=== PATIENT | female | born 1930 | race American Indian/Alaskan Native ===

== ENCOUNTER 2019-08-02 11:36 | Inpatient (IN) | payer MEDICARE ==
[2019-08-02] MEDS ORDERED: SODIUM CHLORIDE 0.9% 1000 ML 1,000 ML IV ONE (12:47)
--- NOTE | 2019-08-02 12:47 | Emergency Department Report ---
HPI - General Chief Complaint: Altered Mental Status Time Seen by Provider: 08/02/19 12:26 - HPI HPI: Room 8 The patient is an 88-year-old female presenting with a chief complaint of diarrhea. Family states the patient has had diarrhea approximately 4 episodes a day for the past 5 days. There's been no history of nausea vomiting. There's been no history of fever or sick contacts. The patient has not been on antibiotics recently. Patient denies pain of any type. Family states Imodium has helped Location: [See above] Duration: [See above] Quality: [See above] Severity: [See above] Timing: [See above] Context: [See above] Modifying factors: [See above] Associated signs and symptoms: [see above] ED Past Medical Hx - Past Medical History Hx Hypertension: Yes Hx Diabetes: Yes - Surgical History Past Surgical History?: No - Family History Family history: no significant - Social History Smoking Status: Never Smoker Substance Use Type: None - Medications Home Medications: Home Medications Medication Instructions Recorded Confirmed Last Taken Type Benazepril HCl [Lotensin] 40 mg PO DAILY 09/12/15 09/12/15 09/11/15 History Carvedilol [Coreg] 6.25 mg PO BID 09/12/15 09/12/15 09/11/15 History Digoxin [Digox] 250 mcg PO DAILY 09/12/15 09/12/15 09/11/15 History Furosemide [Lasix TAB] 20 mg PO QDAY PRN 09/12/15 09/12/15 09/11/15 History Megestrol Acetate [Megace] 40 mg PO DAILY 09/12/15 09/12/15 09/11/15 History Timolol 0.5% [Timoptic] 1 drops OP BID 09/12/15 09/12/15 09/11/15 History ED Review of Systems ROS: Stated complaint: WEAKNESS Other details as noted in HPI Constitutional: denies: fever Eyes: denies: eye pain ENT: denies: throat pain Respiratory: no symptoms reported Cardiovascular: denies: chest pain Endocrine: no symptoms reported Gastrointestinal: diarrhea. denies: abdominal pain, nausea, vomiting Genitourinary: denies: dysuria Musculoskeletal: denies: back pain Neurological: denies: headache Physical Exam - Physical Exam Vital Signs: Vital Signs 08/02/19 08/02/19 08/02/19 11:40 12:16 12:30 Temperature 99.7 F H 98.5 F Pulse Rate 79 101 H 85 Respiratory 18 26 H 18 Rate Blood Pressure 104/39 114/47 Blood Pressure 114/34 104/39 [Left] O2 Sat by Pulse 98 98 Oximetry Physical Exam: GENERAL: The patient is well-developed well-nourished female lying on stretcher not appearing to be in acute distress. [] HEENT: Normocephalic. Atraumatic. Extraocular motions are intact. NECK: Trachea midline CHEST/LUNGS: Clear to auscultation. There is no respiratory distress noted. HEART/CARDIOVASCULAR: Regular. There is no tachycardia. There is no gallop rub or murmur. ABDOMEN: Abdomen is soft, nontender. Patient has normal bowel sounds. There is no abdominal distention. SKIN: There is no rash. There is no edema. There is no diaphoresis. NEURO: The patient is awake, alert, and oriented. The patient is cooperative. The patient has normal speech MUSCULOSKELETAL: There is no evidence of acute injury. RECTAL: Guaiac positive ED Course Vital Signs 08/02/19 08/02/19 08/02/19 11:40 12:16 12:30 Temperature 99.7 F H 98.5 F Pulse Rate 79 101 H 85 Respiratory 18 26 H 18 Rate Blood Pressure 104/39 114/47 Blood Pressure 114/34 104/39 [Left] O2 Sat by Pulse 98 98 Oximetry - Consultations Consultation #1: 08/02/19 13:52 GI paged 08/02/19 14:[address] Poncho SWEET/Peripheral Line Neck R Time Out Performed: Yes Indications: multiple IV sites needed Skin Cleansed in Sterile Fashion: Yes Size: 20 Dressing Placed: Tegaderm Patient Tolerated Procedure: no complications ED Medical Decision Making - Lab Data Result diagrams: 08/02/19 12:45 08/02/19 12:45 Laboratory Tests 08/02/19 08/02/19 08/02/19 11:51 12:45 12:45 WBC 11.0 RBC 1.69 L Hgb 4.8 L* Hct 13.9 L* MCV 82 MCH 29 MCHC 35 H RDW 14.4 Plt Count 213 Sodium 134 L Potassium 3.9 Chloride 98.4 Carbon Dioxide 19 L Anion Gap 21 BUN 48 H Creatinine 2.1 H Estimated GFR 27 BUN/Creatinine Ratio 23 Glucose 144 H POC Glucose 159 H Lactic Acid Calcium 8.2 L Total Bilirubin 0.20 AST 21 ALT 11 Alkaline Phosphatase 67 Total Protein 5.9 L Albumin 3.0 L Albumin/Globulin Ratio 1.0 Lipase Urine Bilirubin 08/02/19 08/02/19 08/02/19 12:45 12:45 13:22 WBC RBC Hgb Hct MCV MCH MCHC RDW Plt Count Sodium Potassium Chloride Carbon Dioxide Anion Gap BUN Creatinine Estimated GFR BUN/Creatinine Ratio Glucose POC Glucose Lactic Acid 3.60 H* Calcium Total Bilirubin AST ALT Alkaline Phosphatase Total Protein Albumin Albumin/Globulin Ratio Lipase 16 Urine Bilirubin Neg - Differential Diagnosis enteritis, partial small bowel obstruction, GI bleed Critical care attestation.: If time is entered above; I have spent that time in minutes in the direct care of this critically ill patient, excluding procedure time. ED Disposition Clinical Impression: Diarrhea, GI bleed, Symptomatic anemia Disposition: OP ADMIT IP TO THIS HOSP Is pt being admited?: Yes Does the pt Need Aspirin: No Condition: Fair Time of Disposition: 14:22 (Hospitalist paged (Dr Mix))
[2019-08-02 13:12] LABS: Mean Corpuscular HGB Conc 35 % (30-34); Mean Corpuscular Volume 82 fl (79-97); Platelet Count 213 K/mm3 (140-440); Red Blood Count 1.69 M/mm3 (3.65-5.03); Red Cell Distribution Width 14.4 % (13.2-15.2)
[2019-08-02 13:21] LABS: Hematocrit 13.9 % (30.3-42.9); Hemoglobin 4.8 gm/dl (10.1-14.3)
[2019-08-02] MEDS ORDERED: SODIUM CHLORIDE 0.9% 500 ML 500 ML IV ONE (13:22)
[2019-08-02] MEDS ORDERED: PANTOPRAZOLE 40 MG INJ IV ONE (13:24)
[2019-08-02 13:27] LABS: Calcium 8.2 mg/dL (8.4-10.2)
[2019-08-02 13:51] LABS: Bilirubin,Urine NEG (Negative); Blood,Urine NEG (Negative); Color,Urine Yellow (Yellow); Protein,Urine <15 mg/dL mg/dL (Negative); Urobilinogen,Urine < 2.0 mg/dL (<2.0)
[2019-08-02 13:58] LABS: Bacteria,Urine 4+ /HPF (Negative); Hyaline Casts,Urine 10 /LPF; Mucus,Urine FEW /HPF
[2019-08-02] MEDS ORDERED: SODIUM CHLORIDE 0.9% 500 ML 500 ML IV NR (15:00)
[2019-08-02] MEDS ORDERED: FUROSEMIDE 20 MG TAB PO PRN (15:00)
--- NOTE | 2019-08-02 15:06 | Gastroenterology Consultation ---
<RATNA LOUISE - Last Filed: 08/02/19 15:16> History of Present Illness - Reason for Consult Consult date: 08/02/19 GI bleed Requesting physician: NURA JUDD - History of Present Illness Patient is a 88 y/o female with PMH of HLD, HTN, DM, and dementia who was brought to ED for c/o diarrhea x 5 days with black stool. Upon admission, she was found to have severe anemia with H/H 4.8/13.9. GI has been consulted for GI bleeding. Upon exam, patient was resting in bed w/o acute distress but noted to be currently hypotensive receiving fluid bolus. Daughter was at bedside how assisted with providing history. No hematemesis or hematochezia. Took pepto- bismol when diarrhea initially began but has most recently been taking immodium at home which has helped with no reported BM today. Denies fever, CP, SOB, wt loss, N/V (ate oatmeal for breakfast this am), abd pain, or constipation. No NSAID use. No hx of previous GI bleeding, PUD, or liver disease. No prior EGD or colonoscopy. Past History Past Medical History: other (as per HPI) Past Surgical History: No surgical history Social history: lives with family. denies: smoking, alcohol abuse Medications and Allergies Allergies Allergy/AdvReac Type Severity Reaction Status Date / Time No Known Allergies Allergy Verified 09/12/15 06:15 Home Medications Medication Instructions Recorded Confirmed Last Taken Type Benazepril HCl [Lotensin] 40 mg PO DAILY 09/12/15 09/12/15 09/11/15 History Carvedilol [Coreg] 6.25 mg PO BID 09/12/15 09/12/15 09/11/15 History Digoxin [Digox] 250 mcg PO DAILY 09/12/15 09/12/15 09/11/15 History Furosemide [Lasix TAB] 20 mg PO QDAY PRN 09/12/15 09/12/15 09/11/15 History Megestrol Acetate [Megace] 40 mg PO DAILY 09/12/15 09/12/15 09/11/15 History Timolol 0.5% [Timoptic] 1 drops OP BID 09/12/15 09/12/15 09/11/15 History Active Meds: Active Medications Albuterol (Proventil) 2.5 mg IH Q3HRT PRN PRN Reason: Shortness Of Breath Digoxin (Lanoxin) 0.25 mg PO DAILY CLAUDIA Furosemide (Lasix) 20 mg PO QDAY PRN PRN Reason: Edema Pantoprazole Sodium 80 mg/ (Sodium Chloride) 100 mls @ 10 mls/hr IV DIRECT CLAUDIA Sodium Chloride (Nacl 0.9% 500 Ml) 500 mls @ 0 mls/hr IV ONCE NR Stop: 08/02/19 21:00 Ceftriaxone Sodium (Rocephin/Ns 1 Gm/50 Ml) 1 gm in 50 mls @ 100 mls/hr IV Q24HR CLAUDIA; Protocol Lisinopril (Zestril) 40 mg PO QDAY CLAUDIA Pantoprazole Sodium (Protonix) 40 mg IV BID CLAUDIA Sodium Chloride (Sodium Chloride Flush Syringe 10 Ml) 10 ml IV BID CLAUDIA Sodium Chloride (Sodium Chloride Flush Syringe 10 Ml) 10 ml IV PRN PRN PRN Reason: LINE FLUSH Timolol Maleate (Timoptic) 1 drops OD BID CLAUDIA medications reviewed/updated as required Review of Systems - Review of Systems All systems: negative Gastrointestinal: diarrhea (black stool) Exam - Constitutional Vital Signs: Temp Pulse Resp BP Pulse Ox 98.5 F 85 18 104/39 98 08/02/19 12:30 08/02/19 12:30 08/02/19 12:30 08/02/19 12:30 08/02/19 12:30 General appearance: no acute distress - EENT Eyes: PERRL, EOM intact ENT: hearing intact - Respiratory Respiratory effort: normal - Cardiovascular Rhythm: regular - Gastrointestinal General gastrointestinal: Present: soft, non-tender, non-distended, normal bowel sounds - Neurologic Neurological: oriented to person - Labs CBC & Chem 7: 08/02/19 12:45 08/02/19 12:45 Lab Results: Laboratory Results - last 24 hr 08/02/19 08/02/19 08/02/19 11:51 12:11 12:45 WBC 11.0 RBC 1.69 L Hgb 4.8 L* Hct 13.9 L* MCV 82 MCH 29 MCHC 35 H RDW 14.4 Plt Count 213 VBG pH Sodium Potassium Chloride Carbon Dioxide Anion Gap BUN Creatinine Estimated GFR BUN/Creatinine Ratio Glucose POC Glucose 159 H 148 H Lactic Acid Calcium Total Bilirubin AST ALT Alkaline Phosphatase Total Protein Albumin Albumin/Globulin Ratio Lipase Urine Color Urine Turbidity Urine pH Ur Specific [place] Urine Protein Urine Glucose (UA) Urine Ketones Urine Blood Urine Nitrite Urine Bilirubin Urine Urobilinogen Ur Leukocyte Esterase Urine WBC (Auto) Urine RBC (Auto) U Epithel Cells (Auto) Urine Bacteria (Auto) Urine WBC Clumps Hyaline Casts Urine Mucus Blood Type Antibody Screen Crossmatch 08/02/19 08/02/19 08/02/19 12:45 12:45 12:45 WBC RBC Hgb Hct MCV MCH MCHC RDW Plt Count VBG pH Sodium 134 L Potassium 3.9 Chloride 98.4 Carbon Dioxide 19 L Anion Gap 21 BUN 48 H Creatinine 2.1 H Estimated GFR 27 BUN/Creatinine Ratio 23 Glucose 144 H POC Glucose Lactic Acid 3.60 H* Calcium 8.2 L Total Bilirubin 0.20 AST 21 ALT 11 Alkaline Phosphatase 67 Total Protein 5.9 L Albumin 3.0 L Albumin/Globulin Ratio 1.0 Lipase 16 Urine Color Urine Turbidity Urine pH Ur Specific [place] Urine Protein Urine Glucose (UA) Urine Ketones Urine Blood Urine Nitrite Urine Bilirubin Urine Urobilinogen Ur Leukocyte Esterase Urine WBC (Auto) Urine RBC (Auto) U Epithel Cells (Auto) Urine Bacteria (Auto) Urine WBC Clumps Hyaline Casts Urine Mucus Blood Type Antibody Screen Crossmatch 08/02/19 08/02/19 08/02/19 13:22 13:36 13:36 WBC RBC Hgb Hct MCV MCH MCHC RDW Plt Count VBG pH 7.397 Sodium Potassium Chloride Carbon Dioxide Anion Gap BUN Creatinine Estimated GFR BUN/Creatinine Ratio Glucose POC Glucose Lactic Acid Calcium Total Bilirubin AST ALT Alkaline Phosphatase Total Protein Albumin Albumin/Globulin Ratio Lipase Urine Color Yellow Urine Turbidity Cloudy Urine pH 5.0 Ur Specific [place] 1.012 Urine Protein <15 mg/dl Urine Glucose (UA) Neg Urine Ketones Neg Urine Blood Neg Urine Nitrite Neg Urine Bilirubin Neg Urine Urobilinogen < 2.0 Ur Leukocyte Esterase Lg Urine WBC (Auto) 46.0 H Urine RBC (Auto) 2.0 U Epithel Cells (Auto) < 1.0 Urine Bacteria (Auto) 4+ Urine WBC Clumps 3+ Hyaline Casts 10 Urine Mucus Few Blood Type O POSITIVE Antibody Screen Negative Crossmatch See Detail Assessment and Plan 1.UGIB/melena 2.acute blood loss anemia -plt WNL -BUN 48 -H/H 4.8/13.9-transfusion PRBCs pending (ordered but not yet given) -continue to monitor H/H and transfuse as needed -hold blood thinning medications -daughter reports diarrhea with black stool x 5 days. No BM today. No hematemesis, hematochezia, abd pain , or N/v. -etiology unclear -clinically, patient is currently hypotensive receiving fluid bolus. -will schedule for EGD tomorrow for further evaluation once HD stable with H/H improved (will be available for emergent EGD if needed) -Keep NPO for now -continue protonix drip -continue supportive care -recommend stat CTA vs bleeding scan for overt bleeding -will follow <ALLA BURRELL - Last Filed: 08/02/19 19:08> Medications and Allergies Active Meds: Active Medications Albuterol (Proventil) 2.5 mg IH Q3HRT PRN PRN Reason: Shortness Of Breath Digoxin (Lanoxin) 0.25 mg PO DAILY CLAUDIA Furosemide (Lasix) 20 mg PO QDAY PRN PRN Reason: Edema Heparin Sodium (Porcine) (Heparin) 5,000 unit SUB-Q Q12HR CLAUDIA Pantoprazole Sodium 80 mg/ (Sodium Chloride) 100 mls @ 10 mls/hr IV DIRECT CLAUDIA Last Admin: 08/02/19 15:20 Dose: 8 mg/hr, 10 mls/hr Documented by: Sodium Chloride (Nacl 0.9% 500 Ml) 500 mls @ 0 mls/hr IV ONCE NR Stop: 08/02/19 21:00 Ceftriaxone Sodium (Rocephin/Ns 1 Gm/50 Ml) 1 gm in 50 mls @ 100 mls/hr IV Q24HR CLAUDIA; Protocol Last Admin: 08/02/19 15:21 Dose: 100 mls/hr Documented by: Lisinopril (Zestril) 40 mg PO QDAY CLAUDIA Sodium Chloride (Sodium Chloride Flush Syringe 10 Ml) 10 ml IV BID CLAUDIA Sodium Chloride (Sodium Chloride Flush Syringe 10 Ml) 10 ml IV PRN PRN PRN Reason: LINE FLUSH Timolol Maleate (Timoptic) 1 drops OD BID CLAUDIA Exam - Constitutional Vital Signs: Temp Pulse Resp BP Pulse Ox 98.5 F 72 15 102/41 100 08/02/19 12:30 08/02/19 15:46 08/02/19 15:46 08/02/19 15:46 08/02/19 15:46 - Labs CBC & Chem 7: 08/02/19 12:45 08/02/19 12:45 Lab Results: Laboratory Results - last 24 hr 08/02/19 08/02/19 08/02/19 11:51 12:11 12:45 WBC 11.0 RBC 1.69 L Hgb 4.8 L* Hct 13.9 L* MCV 82 MCH 29 MCHC 35 H RDW 14.4 Plt Count 213 VBG pH Sodium Potassium Chloride Carbon Dioxide Anion Gap BUN Creatinine Estimated GFR BUN/Creatinine Ratio Glucose POC Glucose 159 H 148 H Lactic Acid Calcium Total Bilirubin AST ALT Alkaline Phosphatase Total Protein Albumin Albumin/Globulin Ratio Lipase Urine Color Urine Turbidity Urine pH Ur Specific [place] Urine Protein Urine Glucose (UA) Urine Ketones Urine Blood Urine Nitrite Urine Bilirubin Urine Urobilinogen Ur Leukocyte Esterase Urine WBC (Auto) Urine RBC (Auto) U Epithel Cells (Auto) Urine Bacteria (Auto) Urine WBC Clumps Hyaline Casts Urine Mucus Blood Type Antibody Screen Crossmatch 08/02/19 08/02/19 08/02/19 12:45 12:45 12:45 WBC RBC Hgb Hct MCV MCH MCHC RDW Plt Count VBG pH Sodium 134 L Potassium 3.9 Chloride 98.4 Carbon Dioxide 19 L Anion Gap 21 BUN 48 H Creatinine 2.1 H Estimated GFR 27 BUN/Creatinine Ratio 23 Glucose 144 H POC Glucose Lactic Acid 3.60 H* Calcium 8.2 L Total Bilirubin 0.20 AST 21 ALT 11 Alkaline Phosphatase 67 Total Protein 5.9 L Albumin 3.0 L Albumin/Globulin Ratio 1.0 Lipase 16 Urine Color Urine Turbidity Urine pH Ur Specific [place] Urine Protein Urine Glucose (UA) Urine Ketones Urine Blood Urine Nitrite Urine Bilirubin Urine Urobilinogen Ur Leukocyte Esterase Urine WBC (Auto) Urine RBC (Auto) U Epithel Cells (Auto) Urine Bacteria (Auto) Urine WBC Clumps Hyaline Casts Urine Mucus Blood Type Antibody Screen Crossmatch 08/02/19 08/02/19 08/02/19 13:22 13:36 13:36 WBC RBC Hgb Hct MCV MCH MCHC RDW Plt Count VBG pH 7.397 Sodium Potassium Chloride Carbon Dioxide Anion Gap BUN Creatinine Estimated GFR BUN/Creatinine Ratio Glucose POC Glucose Lactic Acid Calcium Total Bilirubin AST ALT Alkaline Phosphatase Total Protein Albumin Albumin/Globulin Ratio Lipase Urine Color Yellow Urine Turbidity Cloudy Urine pH 5.0 Ur Specific [place] 1.012 Urine Protein <15 mg/dl Urine Glucose (UA) Neg Urine Ketones Neg Urine Blood Neg Urine Nitrite Neg Urine Bilirubin Neg Urine Urobilinogen < 2.0 Ur Leukocyte Esterase Lg Urine WBC (Auto) 46.0 H Urine RBC (Auto) 2.0 U Epithel Cells (Auto) < 1.0 Urine Bacteria (Auto) 4+ Urine WBC Clumps 3+ Hyaline Casts 10 Urine Mucus Few Blood Type O POSITIVE Antibody Screen Negative Crossmatch See Detail 08/02/19 16:35 WBC RBC Hgb Hct MCV MCH MCHC RDW Plt Count VBG pH Sodium Potassium Chloride Carbon Dioxide Anion Gap BUN Creatinine Estimated GFR BUN/Creatinine Ratio Glucose POC Glucose 127 H Lactic Acid Calcium Total Bilirubin AST ALT Alkaline Phosphatase Total Protein Albumin Albumin/Globulin Ratio Lipase Urine Color Urine Turbidity Urine pH Ur Specific [place] Urine Protein Urine Glucose (UA) Urine Ketones Urine Blood Urine Nitrite Urine Bilirubin Urine Urobilinogen Ur Leukocyte Esterase Urine WBC (Auto) Urine RBC (Auto) U Epithel Cells (Auto) Urine Bacteria (Auto) Urine WBC Clumps Hyaline Casts Urine Mucus Blood Type Antibody Screen Crossmatch Assessment and Plan Patient seen and examined on 08/02/2019. Agree with A/P. 88 yo female with dementia and HTN admitted for GI bleed. Reports diarrhea with black stools but no BM for past 2 days. Hgb down to 4.8 and pending transfusion. - possible upper GI bleed. - continue with ppi IV - monitor H/H. transfuse with Hgb goal >7. - will plan for EGD tomorrow once resusitated and receives blood transfusion.
[2019-08-02] MEDS: PANTOPRAZOLE 80 MG in SODIUM CHLORIDE 0.9% 100 ML IV SCH (15:20)
[2019-08-02] MEDS: cefTRIAXone/NS 1 GM/50 ML 1 GM/50 ML BAG IV SCH (15:21)
[2019-08-02] MEDS ORDERED: ALBUTEROL 2.5 MG/3 ML NEBU IH PRN (17:00)
--- NOTE | 2019-08-02 17:10 | History and Physical Report ---
History of Present Illness Date of admission: 08/02/19 14:23 Chief complaint: she is bleeding History of present illness: 88 YO Female with HTN, HLD, Dementia presents to ED for evaluation. Pt is confused and unable to provide detailed history. Pt history provided by daughter who is at bedside during exam and interview. As per daughter, the patient has experienced 4-5 dark tarry stools daily over the past 1 week with persistent symptoms over the same time frame. Pt transported to [facility] via private vehicle for evaluation. Pt seen and evaluated in ED and found to have GI Bleed complicated by symptomatic anemia with HGB of 4.8, as well as Acute Kidney Injury, UTI and Encephalopathy. Pt admitted to [facility] and initiated on PRBC transfusion. GI consulted in ED. Nephrology consulted in ED. No reports of fever, chills, CP, Palpitations, NVD, Productive cough, ingestion of food/water from new or different sources. Prior admission on 09/12/15 reviewed. All listed medication reconciled at time of admission. Advanced car planning conducted in ED. Pt daughter acknowledges understanding and agreement with care plan. Past History Past Medical History: diabetes, hypertension, hyperlipidemia, other (Dementia) Past Surgical History: No surgical history Social history: lives with family. denies: smoking, alcohol abuse Family history: diabetes, hypertension Medications and Allergies Allergies Allergy/AdvReac Type Severity Reaction Status Date / Time No Known Allergies Allergy Verified 09/12/15 06:15 Home Medications Medication Instructions Recorded Confirmed Last Taken Type Benazepril HCl [Lotensin] 40 mg PO DAILY 09/12/15 09/12/15 09/11/15 History Carvedilol [Coreg] 6.25 mg PO BID 09/12/15 09/12/15 09/11/15 History Digoxin [Digox] 250 mcg PO DAILY 09/12/15 09/12/15 09/11/15 History Furosemide [Lasix TAB] 20 mg PO QDAY PRN 09/12/15 09/12/15 09/11/15 History Megestrol Acetate [Megace] 40 mg PO DAILY 09/12/15 09/12/15 09/11/15 History Timolol 0.5% [Timoptic] 1 drops OP BID 09/12/15 09/12/15 09/11/15 History Active Meds: Active Medications Albuterol (Proventil) 2.5 mg IH Q3HRT PRN PRN Reason: Shortness Of Breath Digoxin (Lanoxin) 0.25 mg PO DAILY CLAUDIA Furosemide (Lasix) 20 mg PO QDAY PRN PRN Reason: Edema Pantoprazole Sodium 80 mg/ (Sodium Chloride) 100 mls @ 10 mls/hr IV DIRECT CLAUDIA Last Admin: 08/02/19 15:20 Dose: 8 mg/hr, 10 mls/hr Documented by: Sodium Chloride (Nacl 0.9% 500 Ml) 500 mls @ 0 mls/hr IV ONCE NR Stop: 08/02/19 21:00 Ceftriaxone Sodium (Rocephin/Ns 1 Gm/50 Ml) 1 gm in 50 mls @ 100 mls/hr IV Q24HR CLAUDIA; Protocol Last Admin: 08/02/19 15:21 Dose: 100 mls/hr Documented by: Lisinopril (Zestril) 40 mg PO QDAY CLAUDIA Pantoprazole Sodium (Protonix) 40 mg IV BID CLAUDIA Sodium Chloride (Sodium Chloride Flush Syringe 10 Ml) 10 ml IV BID CLAUDIA Sodium Chloride (Sodium Chloride Flush Syringe 10 Ml) 10 ml IV PRN PRN PRN Reason: LINE FLUSH Timolol Maleate (Timoptic) 1 drops OD BID CLAUDIA Review of Systems ROS unobtainable: due to mental status Exam - Constitutional Vitals: Temp Pulse Resp BP Pulse Ox 98.5 F 72 15 102/41 100 08/02/19 12:30 08/02/19 15:46 08/02/19 15:46 08/02/19 15:46 08/02/19 15:46 General appearance: Present: mild distress - EENT Eyes: Present: PERRL (conjunctival pallor) ENT: hearing intact, clear oral mucosa - Neck Neck: Present: supple, normal ROM - Respiratory Respiratory effort: normal Respiratory: bilateral: CTA - Cardiovascular Heart Sounds: Present: S1 & S2. Absent: rub, click - Extremities Extremities: pulses symmetrical, No edema Peripheral Pulses: within normal limits - Abdominal General gastrointestinal: Present: soft, non-tender, non-distended, normal bowel sounds Female genitourinary: Present: normal - Integumentary Integumentary: Present: clear, warm, dry - Musculoskeletal Musculoskeletal: generalized weakness - Psychiatric Psychiatric: no appropriate mood/affect, no intact judgment & insight, no memory intact - Neurologic Neurologic: CNII-XII intact, moves all extremities, no gait normal Results - Labs CBC & Chem 7: 08/02/19 12:45 08/02/19 12:45 Labs: Abnormal lab results 08/02/19 08/02/19 08/02/19 Range/Units 11:51 12:11 12:45 RBC 1.69 L (3.65-5.03) M/mm3 Hgb 4.8 L* (10.1-14.3) gm/dl Hct 13.9 L* (30.3-42.9) % MCHC 35 H (30-34) % Sodium (137-145) mmol/L Carbon Dioxide (22-30) mmol/L BUN (7-17) mg/dL Creatinine (0.7-1.2) mg/dL Glucose (65-100) mg/dL POC Glucose 159 H 148 H (70-105) Lactic Acid (0.7-2.0) mmol/L Calcium (8.4-10.2) mg/dL Total Protein (6.3-8.2) g/dL Albumin (3.9-5) g/dL Urine WBC (Auto) (0.0-6.0) /HPF Crossmatch 08/02/19 08/02/19 08/02/19 Range/Units 12:45 12:45 13:22 RBC (3.65-5.03) M/mm3 Hgb (10.1-14.3) gm/dl Hct (30.3-42.9) % MCHC (30-34) % Sodium 134 L (137-145) mmol/L Carbon Dioxide 19 L (22-30) mmol/L BUN 48 H (7-17) mg/dL Creatinine 2.1 H (0.7-1.2) mg/dL Glucose 144 H (65-100) mg/dL POC Glucose (70-105) Lactic Acid 3.60 H* (0.7-2.0) mmol/L Calcium 8.2 L (8.4-10.2) mg/dL Total Protein 5.9 L (6.3-8.2) g/dL Albumin 3.0 L (3.9-5) g/dL Urine WBC (Auto) 46.0 H (0.0-6.0) /HPF Crossmatch 08/02/19 08/02/19 Range/Units 13:36 16:35 RBC (3.65-5.03) M/mm3 Hgb (10.1-14.3) gm/dl Hct (30.3-42.9) % MCHC (30-34) % Sodium (137-145) mmol/L Carbon Dioxide (22-30) mmol/L BUN (7-17) mg/dL Creatinine (0.7-1.2) mg/dL Glucose (65-100) mg/dL POC Glucose 127 H (70-105) Lactic Acid (0.7-2.0) mmol/L Calcium (8.4-10.2) mg/dL Total Protein (6.3-8.2) g/dL Albumin (3.9-5) g/dL Urine WBC (Auto) (0.0-6.0) /HPF Crossmatch See Detail Assessment and Plan - Patient Problems (1) GI bleed Current Visit: Yes Status: Acute Qualifiers: GI bleed type/associated pathology: unspecified gastrointestinal hemorrhage type Qualified Code(s): K92.2 - Gastrointestinal hemorrhage, unspecified Plan to address problem: Admit to IMCU, IV PPI therapy, GI consulted in ED, CBC, supportive care, PRBC Transfusion. (2) AZALIA (acute kidney injury) Current Visit: Yes Status: Acute Plan to address problem: IVF resuscitation therapy, renal ultrasound, monitor serum creatnine, urine electrolytes, Nephrology consulted. (3) UTI (urinary tract infection) Current Visit: Yes Status: Acute Qualifiers: Encounter type: initial encounter Plan to address problem: IV antibiotic therapy, urinalysis, CBC, CMP, supportive care. (4) Encephalopathy Current Visit: Yes Status: Acute Plan to address problem: supportive care, Treat UTI, neuro checks, aspiration precautions, (5) HTN (hypertension) Current Visit: Yes Status: Acute Qualifiers: Hypertension type: essential hypertension Qualified Code(s): I10 - Essential (primary) hypertension Plan to address problem: Monitor BP q shift, supportive care (6) HLD (hyperlipidemia) Current Visit: Yes Status: Acute Qualifiers: Hyperlipidemia type: mixed hyperlipidemia Qualified Code(s): E78.2 - Mixed hyperlipidemia Plan to address problem: low fat, low cholesterol diet, (7) DVT prophylaxis Current Visit: Yes Status: Acute Plan to address problem: SCD to BLE while in bed, Prophylactic heparin
[2019-08-02] MEDS ORDERED: PANTOPRAZOLE 40 MG INJ IV SCH (22:00)
[2019-08-02] MEDS: HEPARIN 5,000 UNIT/1 ML VIAL SUB-Q SCH (23:04)
[2019-08-03] MEDS: PANTOPRAZOLE 80 MG in SODIUM CHLORIDE 0.9% 100 ML IV SCH ×2 (00:24→11:34)
[2019-08-03] MEDS ORDERED: WATER FOR IRRIG STERILE 250 ML BOTTLE IR ONE (08:01)
[2019-08-03] MEDS ORDERED: WATER FOR IRRIG STERILE 1,000 ML BOTTLE ONE (08:01)
[2019-08-03] MEDS ORDERED: PROPOFOL 200 MG/20 ML VIAL IV ONE ×2 (08:04→08:05)
--- NOTE | 2019-08-03 08:05 | Anesthesia Consultation ---
<FELICITA GARCÍA - Last Filed: 08/03/19 08:05> Anesthesia Consult and Med Hx Date of service: 08/03/19 - Airway Anesthetic Teeth Evaluation: Dentures (upper and lower) ROM Head & Neck: Adequate Mental/Hyoid Distance: Adequate Mallampati Class: Class II Intubation Access Assessment: Probably Good - Pre-Operative Health Status ASA Pre-Surgery Classification: ASA3, Emergency Proposed Anesthetic Plan: MAC - Cardiovascular System Hx Hypertension: Yes Hx Coronary Artery Disease: No (high cholesterol) - Central Nervous System Hx Psychiatric Problems: Yes (dementia) - Endocrine Hx Non-Insulin Dependent Diabetes: Yes - Hematic Hx Anemia: Yes <RAY LANE - Last Filed: 08/03/19 20:00> Anesthesia Consult and Med Hx - Additional Comments Anesthesia Medical History Comments: Daughter reports hx CHF. Recently taken off digoxin. She is unsure of recent EF. Unknown functional status, stable 1 pillow orthopnea. No cardiac [facility] E[facility].
--- NOTE | 2019-08-03 08:06 | Anesthesia Day of Surgery ---
Anesthesia Day of Surgery - Day of Surgery Patient Examined: Yes Patient H&P Reviewed: Yes Patient is NPO: Yes
[2019-08-03 08:07] LABS: Albumin 3.2 g/dL (3.9-5); Calcium 8.3 mg/dL (8.4-10.2)
[2019-08-03] MEDS ORDERED: ePHEDrine SULFATE 50 MG/1 ML INJ ONE (08:07)
[2019-08-03] MEDS ORDERED: SODIUM CHLORIDE 0.9% 1000 ML 1,000 ML ONE (08:17)
--- NOTE | 2019-08-03 08:48 | Progress Note ---
Assessment and Plan Assessment and plan: -- Acute GI bleeding: Current Visit: Yes Status: Acute GI evaluation noted and appreciated, S/P EGD : FINDINGS: 1. Mild erythematous mucosa in the antrum. No signs of bleeding. 2. Normal duodenum exam to the second portion. 3. Regular z-line at 40 cm from the incisors. 4. Normal esophagus. RECOMMENDATIONS: 1. Resume clear liquid diet. 2. Will plan for colonoscopy tomorrow. 3. Golytely prep and NPO MN. 4. Updated the family and agreeable for colonoscopy. 5. Monitor H/H every 8 hrs. Continue IV PPI therapy Possible Colonoscopy tomorrow --Acute blood loss anemia: Hemoglobin 4.8 at the time of admission S/P 3 units PRBC transfusion Hb 8.1 Monitor H&H transfuse additional as needed -- AZALIA (acute kidney injury) Current Visit: Yes Status: Acute . IVF resuscitation therapy, renal ultrasound, monitor serum creatnine, Nephrology following --UTI (urinary tract infection) Current Visit: Yes Status: Acute IV antibiotic therapy, follow cultures -- Encephalopathy Current Visit: Yes Status: Acute supportive care, Treat UTI, neuro checks, aspiration precautions, --HTN (hypertension) Current Visit: Yes Status: Acute Monitor BP q shift, supportive care -- HLD (hyperlipidemia) Current Visit: Yes Status: Acute low fat, low cholesterol diet, --Mild Malnutrition/hypoalbuminemia: Nutrition suppliments,supportive care --DVT prophylaxis Current Visit: Yes Status: Acute SCD to BLE while in bed, Prophylactic heparin. f/u colonoscopy,if neg and stable patient may be discharged Critical care time 32 minutes History Interval history: Patient seen and examined medical records reviewed Admitted with acute GI bleeding Evaluated by GI, had EGD, findings reviewed Patient is sleeping easily awakens Vital signs reviewed Patient not in acute distress Hospitalist Physical - Constitutional Vitals: Temp Pulse Resp BP Pulse Ox 98.0 F 75 17 166/73 90 08/03/19 08:24 08/03/19 08:24 08/03/19 08:24 08/03/19 08:24 08/03/19 08:24 General appearance: Present: no acute distress, well-nourished, obese - EENT Eyes: Present: PERRL, EOM intact - Neck Neck: Present: supple, normal ROM - Respiratory Respiratory effort: normal Respiratory: bilateral: diminished, negative: rales, rhonchi, wheezing - Cardiovascular Rhythm: regular Heart Sounds: Present: S1 & S2 - Extremities Extremities: no ischemia, No edema - Abdominal General gastrointestinal: soft, non-tender, non-distended, normal bowel sounds - Integumentary Integumentary: Present: clear, warm - Psychiatric Psychiatric: other (sleeping easily awakens) - Neurologic Neurologic: moves all extremities Results - Labs CBC & Chem 7: 08/03/19 14:31 08/03/19 Unknown Labs: Laboratory Last Values WBC 11.0 K/mm3 (4.5-11.0) 08/02/19 12:45 RBC 1.69 M/mm3 (3.65-5.03) L 08/02/19 12:45 Hgb 4.8 gm/dl (10.1-14.3) L* 08/02/19 12:45 Hct 13.9 % (30.3-42.9) L* 08/02/19 12:45 MCV 82 fl (79-97) 08/02/19 12:45 MCH 29 pg (28-32) 08/02/19 12:45 MCHC 35 % (30-34) H 08/02/19 12:45 RDW 14.4 % (13.2-15.2) 08/02/19 12:45 Plt Count 213 K/mm3 (140-440) 08/02/19 12:45 VBG pH 7.397 (7.320-7.420) 08/02/19 13:36 Sodium 144 mmol/L (137-145) D 08/03/19 Unknown Potassium 4.3 mmol/L (3.6-5.0) 08/03/19 Unknown Chloride 108.1 mmol/L (98-107) H 08/03/19 Unknown Carbon Dioxide 19 mmol/L (22-30) L 08/03/19 Unknown Anion Gap 21 mmol/L 08/03/19 Unknown BUN 33 mg/dL (7-17) H 08/03/19 Unknown Creatinine 1.4 mg/dL (0.7-1.2) H 08/03/19 Unknown Estimated GFR 43 ml/min 08/03/19 Unknown BUN/Creatinine Ratio 24 % 08/03/19 Unknown Glucose 91 mg/dL (65-100) 08/03/19 Unknown POC Glucose 96 (70-105) 08/03/19 05:58 Lactic Acid 3.60 mmol/L (0.7-2.0) H* 08/02/19 12:45 Calcium 8.3 mg/dL (8.4-10.2) L 08/03/19 Unknown Total Bilirubin 0.60 mg/dL (0.1-1.2) 08/03/19 Unknown AST 34 units/L (5-40) 08/03/19 Unknown ALT 14 units/L (7-56) 08/03/19 Unknown Alkaline Phosphatase 75 units/L (35-129) 08/03/19 Unknown Total Protein 5.9 g/dL (6.3-8.2) L 08/03/19 Unknown Albumin 3.2 g/dL (3.9-5) L 08/03/19 Unknown Albumin/Globulin Ratio 1.2 % 08/03/19 Unknown Lipase 16 units/L (13-60) 08/02/19 12:45 Urine Color Yellow (Yellow) 08/02/19 13:22 Urine Turbidity Cloudy (Clear) 08/02/19 13:22 Urine pH 5.0 (5.0-7.0) 08/02/19 13:22 Ur Specific [place] 1.012 (1.003-1.030) 08/02/19 13:22 Urine Protein <15 mg/dl mg/dL (Negative) 08/02/19 13:22 Urine Glucose (UA) Neg mg/dL (Negative) 08/02/19 13:22 Urine Ketones Neg mg/dL (Negative) 08/02/19 13:22 Urine Blood Neg (Negative) 08/02/19 13:22 Urine Nitrite Neg (Negative) 08/02/19 13:22 Urine Bilirubin Neg (Negative) 08/02/19 13:22 Urine Urobilinogen < 2.0 mg/dL (<2.0) 08/02/19 13:22 Ur Leukocyte Esterase Lg (Negative) 08/02/19 13:22 Urine WBC (Auto) 46.0 /HPF (0.0-6.0) H 08/02/19 13:22 Urine RBC (Auto) 2.0 /HPF (0.0-6.0) 08/02/19 13:22 U Epithel Cells (Auto) < 1.0 /HPF (0-13.0) 08/02/19 13:22 Urine Bacteria (Auto) 4+ /HPF (Negative) 08/02/19 13:22 Urine WBC Clumps 3+ /HPF 08/02/19 13:22 Hyaline Casts 10 /LPF 08/02/19 13:22 Urine Mucus Few /HPF 08/02/19 13:22 Digoxin 0.2 ng/mL (0.9-2.0) L 08/02/19 13:36 Blood Type O POSITIVE 08/02/19 13:36 Antibody Screen Negative 08/02/19 13:36 Crossmatch See Detail 08/02/19 13:36 Active Medications - Current Medications Current Medications: Generic Name Dose Route Start Last Admin Trade Name Freq PRN Reason Stop Dose Admin Albuterol 2.5 mg 08/02/19 17:00 Proventil IH Q3HRT PRN Shortness Of Breath Digoxin 0.25 mg 08/03/19 17:00 Lanoxin PO DAILY@1700 CLAUDIA Furosemide 20 mg 08/02/19 15:00 Lasix PO QDAY PRN Edema Heparin Sodium (Porcine) 5,000 unit 08/02/19 22:00 08/02/19 23:04 Heparin SUB-Q 5,000 unit Q12HR CLAUDIA Administration Pantoprazole Sodium 80 mg/ 100 mls @ 10 mls/hr 08/02/19 15:00 08/03/19 00:24 Sodium Chloride IV 8 mg/hr DIRECT CLAUDIA 10 mls/hr Administration 8 MG/HR Ceftriaxone Sodium 1 gm in 50 mls @ 100 mls/hr 08/02/19 15:00 08/02/19 15:21 Rocephin/Ns 1 Gm/50 Ml IV 100 mls/hr Q24HR CLAUDIA Administration Protocol Sodium Chloride 1,000 mls @ 50 mls/hr 08/03/19 09:00 Nacl 0.9% 1000 Ml IV DIRECT CLAUDIA Lisinopril 40 mg 08/03/19 10:00 Zestril PO QDAY CLAUDIA Sodium Chloride 10 ml 08/02/19 22:00 08/02/19 23:06 Sodium Chloride Flush Syringe 10 Ml IV 10 ml BID CLAUDIA Administration Sodium Chloride 10 ml 08/02/19 15:00 Sodium Chloride Flush Syringe 10 Ml IV PRN PRN LINE FLUSH Timolol Maleate 1 drops 08/02/19 22:00 Timoptic OD BID CLAUDIA
[2019-08-03] MEDS ORDERED: SODIUM CHLORIDE 0.9% 1000 ML 1,000 ML IV SCH (09:00)
--- NOTE | 2019-08-03 09:22 | Operative Report ---
Operative Report Operative Report: DOS: 08/03/2019 Endoscopist: Dick Isaac MD EGD REPORT PREOPERATIVE DIAGNOSIS and POSTOPERATIVE DIAGNOSIS: GI bleed ESTIMATED BLOOD LOSS: minimal DESCRIPTION OF PROCEDURE: A high-resolution EGD scope was passed through the oropharynx, esophagus, stomach. The scope was carefully withdrawn. Retroflexion was performed in the stomach. At the end of the procedure, the scope was cleaned using normal technique. Vital signs monitored continuously throughout. SEDATION: Provided by Anesthesiology Services. COMPLICATIONS: None. FINDINGS: 1. Mild erythematous mucosa in the antrum. No signs of bleeding. 2. Normal duodenum exam to the second portion. 3. Regular z-line at 40 cm from the incisors. 4. Normal esophagus. RECOMMENDATIONS: 1. Resume clear liquid diet. 2. Will plan for colonoscopy tomorrow. 3. Golytely prep and NPO MN. 4. Updated the family and agreeable for colonoscopy. Discussed risks and benefits. 5. Monitor H/H every 8 hrs.
[2019-08-03] MEDS ORDERED: BENAZEPRIL HCL 40 MG PO SCH (10:00)
[2019-08-03] MEDS: TIMOLOL 0.5% OPHTH SOLN 5 ML OD SCH ×2 (10:44→10:48)
[2019-08-03] MEDS: HEPARIN 5,000 UNIT/1 ML VIAL SUB-Q SCH (10:46)
[2019-08-03] MEDS: cefTRIAXone/NS 1 GM/50 ML 1 GM/50 ML BAG IV SCH (10:47)
[2019-08-03] MEDS: LISINOPRIL 40 MG TAB PO SCH (10:48)
[2019-08-03 10:53] LABS: Basophils # (Auto) 0.1 K/mm3 (0.0-0.1); Basophils % (Auto) 0.7 % (0.0-1.8); Eosinophils # (Auto) 0.3 K/mm3 (0.0-0.4); Eosinophils % (Auto) 2.9 % (0.0-4.3); Hematocrit 23.2 % (30.3-42.9); Hemoglobin 8.1 gm/dl (10.1-14.3); Lymphocytes # (Auto) 1.1 K/mm3 (1.2-5.4); Lymphocytes % (Auto) 12.5 % (13.4-35.0); Mean Corpuscular HGB Conc 35 % (30-34); Mean Corpuscular Volume 83 fl (79-97); Monocytes # (Auto) 0.5 K/mm3 (0.0-0.8); Monocytes % (Auto) 5.6 % (0.0-7.3); Platelet Count 196 K/mm3 (140-440); Red Blood Count 2.78 M/mm3 (3.65-5.03); Red Cell Distribution Width 14.5 % (13.2-15.2)
[2019-08-03 11:04] LABS: INR 1.15 (0.87-1.13)
--- NOTE | 2019-08-03 11:44 | Progress Note ---
Subjective Date of service: 08/03/19 Objective - Vital Signs Vital signs: Vital Signs - 12hr 08/02/19 08/03/19 08/03/19 23:51 00:00 00:06 Temperature 98.2 F Pulse Rate 68 68 Pulse Rate [ From Monitor] Respiratory 15 16 18 Rate Blood Pressure 143/57 143/57 O2 Sat by Pulse 100 98 99 Oximetry 08/03/19 08/03/19 08/03/19 00:07 00:30 00:42 Temperature 98.2 F 97.9 F Pulse Rate 64 Pulse Rate [ From Monitor] Respiratory 16 Rate Blood Pressure 142/55 O2 Sat by Pulse 100 Oximetry 08/03/19 08/03/19 08/03/19 01:00 01:12 01:17 Temperature 98.2 F 98.2 F Pulse Rate 72 74 Pulse Rate [ From Monitor] Respiratory 23 19 Rate Blood Pressure 140/60 155/61 O2 Sat by Pulse 100 100 Oximetry 08/03/19 08/03/19 08/03/19 01:30 02:00 02:03 Temperature 98.3 F Pulse Rate 69 70 68 Pulse Rate [ From Monitor] Respiratory 20 19 18 Rate Blood Pressure 154/65 160/65 156/61 O2 Sat by Pulse 100 100 100 Oximetry 08/03/19 08/03/19 08/03/19 02:30 02:48 03:00 Temperature 98.3 F Pulse Rate 67 70 Pulse Rate [ From Monitor] Respiratory 18 17 Rate Blood Pressure 156/61 169/61 O2 Sat by Pulse 100 100 Oximetry 08/03/19 08/03/19 08/03/19 03:30 03:48 04:00 Temperature 98.3 F 98.1 F Pulse Rate 74 70 Pulse Rate [ 71 From Monitor] Respiratory 13 17 Rate Blood Pressure 161/80 160/66 O2 Sat by Pulse 100 100 Oximetry 08/03/19 08/03/19 08/03/19 04:30 04:48 05:00 Temperature 98.3 F Pulse Rate 74 66 Pulse Rate [ From Monitor] Respiratory 23 22 Rate Blood Pressure 155/65 155/65 O2 Sat by Pulse 100 99 Oximetry 08/03/19 08/03/19 08/03/19 05:05 08:24 08:56 Temperature 98.3 F 98.0 F Pulse Rate 75 77 Pulse Rate [ From Monitor] Respiratory 17 26 H Rate Blood Pressure 166/73 135/57 O2 Sat by Pulse 90 100 Oximetry 08/03/19 10:48 Temperature Pulse Rate 82 Pulse Rate [ From Monitor] Respiratory Rate Blood Pressure 111/75 O2 Sat by Pulse Oximetry - Lab 08/03/19 10:00 08/03/19 Unknown Most recent lab results Calcium 8.3 mg/dL (8.4-10.2) L 08/03/19 Unknown Medications & Allergies - Medications Allergies/Adverse Reactions: Allergies No Known Allergies Allergy (Verified 09/12/15 06:15) Home Medications: Home Medications Medication Instructions Recorded Confirmed Last Taken Type Benazepril HCl [Lotensin] 40 mg PO DAILY 09/12/15 09/12/15 09/11/15 History Carvedilol [Coreg] 6.25 mg PO BID 09/12/15 09/12/15 09/11/15 History Digoxin [Digox] 250 mcg PO DAILY 09/12/15 09/12/15 09/11/15 History Furosemide [Lasix TAB] 20 mg PO QDAY PRN 09/12/15 09/12/15 09/11/15 History Megestrol Acetate [Megace] 40 mg PO DAILY 09/12/15 09/12/15 09/11/15 History Timolol 0.5% [Timoptic] 1 drops OP BID 09/12/15 09/12/15 09/11/15 History Active Medications: Generic Name Dose Route Start Last Admin Trade Name Freq PRN Reason Stop Dose Admin Albuterol 2.5 mg 08/02/19 17:00 Proventil IH Q3HRT PRN Shortness Of Breath Digoxin 0.25 mg 08/03/19 17:00 Lanoxin PO DAILY@1700 CLAUDIA Furosemide 20 mg 08/02/19 15:00 Lasix PO QDAY PRN Edema Heparin Sodium (Porcine) 5,000 unit 08/02/19 22:00 08/03/19 10:46 Heparin SUB-Q 5,000 unit Q12HR CLAUDIA Administration Pantoprazole Sodium 80 mg/ 100 mls @ 10 mls/hr 08/02/19 15:00 08/03/19 11:34 Sodium Chloride IV 8 mg/hr DIRECT CLAUDIA 10 mls/hr Administration 8 MG/HR Ceftriaxone Sodium 1 gm in 50 mls @ 100 mls/hr 08/02/19 15:00 08/03/19 10:47 Rocephin/Ns 1 Gm/50 Ml IV 100 mls/hr Q24HR CLAUDIA Administration Protocol Sodium Chloride 1,000 mls @ 50 mls/hr 08/03/19 09:00 Nacl 0.9% 1000 Ml IV DIRECT CLAUDIA Lisinopril 40 mg 08/03/19 10:00 08/03/19 10:48 Zestril PO 40 mg QDAY CLAUDIA Administration Polyethylene Glycol/Electrolytes 4,000 ml 08/03/19 16:00 Golytely PO 08/03/19 16:01 ONCE ONE Sodium Chloride 10 ml 08/02/19 22:00 08/03/19 10:47 Sodium Chloride Flush Syringe 10 Ml IV 10 ml BID CLAUDIA Administration Sodium Chloride 10 ml 08/02/19 15:00 Sodium Chloride Flush Syringe 10 Ml IV PRN PRN LINE FLUSH Timolol Maleate 1 drops 08/02/19 22:00 08/03/19 10:48 Timoptic OD 1 drops BID CLAUDIA Administration
--- NOTE | 2019-08-03 11:47 | Consultation ---
History of Present Illness - Reason for Consult Consult date: 08/03/19 acute renal failure - History of Present Illness The patient is a 88 YO female with history significant for Type 2 DM, HLD, HTN, and Dementia who was brought to [facility] ED with c/o diarrhea x 5 days and associated black stool. Patient si a very poor historian and the information was obtained from her daughter at the bedside. No h/o fever, vomiting, abd pain, CP, SOB, constipation, dysuria, hematuria, rash or NSAID. On admission, her BP was low, she was found to have H/H of 4.8/13.9, Creat 2.1 and Lacate 3.6. No prior kidney problem. Nephrology was consulted for further evaluation. Past History Past Medical History: diabetes, hypertension, hyperlipidemia, other (Dementia) Past Surgical History: No surgical history Social history: lives with family. denies: smoking, alcohol abuse Family history: diabetes, hypertension Medications and Allergies Allergies Allergy/AdvReac Type Severity Reaction Status Date / Time No Known Allergies Allergy Verified 09/12/15 06:15 Home Medications Medication Instructions Recorded Confirmed Last Taken Type Benazepril HCl [Lotensin] 40 mg PO DAILY 09/12/15 09/12/15 09/11/15 History Carvedilol [Coreg] 6.25 mg PO BID 09/12/15 09/12/15 09/11/15 History Digoxin [Digox] 250 mcg PO DAILY 09/12/15 09/12/15 09/11/15 History Furosemide [Lasix TAB] 20 mg PO QDAY PRN 09/12/15 09/12/15 09/11/15 History Megestrol Acetate [Megace] 40 mg PO DAILY 09/12/15 09/12/15 09/11/15 History Timolol 0.5% [Timoptic] 1 drops OP BID 09/12/15 09/12/15 09/11/15 History Active Meds: Active Medications Albuterol (Proventil) 2.5 mg IH Q3HRT PRN PRN Reason: Shortness Of Breath Digoxin (Lanoxin) 0.25 mg PO DAILY@1700 CLAUDIA Furosemide (Lasix) 20 mg PO QDAY PRN PRN Reason: Edema Heparin Sodium (Porcine) (Heparin) 5,000 unit SUB-Q Q12HR CLAUDIA Last Admin: 08/03/19 10:46 Dose: 5,000 unit Documented by: Pantoprazole Sodium 80 mg/ (Sodium Chloride) 100 mls @ 10 mls/hr IV DIRECT CLAUDIA Last Admin: 08/03/19 11:34 Dose: 8 mg/hr, 10 mls/hr Documented by: Ceftriaxone Sodium (Rocephin/Ns 1 Gm/50 Ml) 1 gm in 50 mls @ 100 mls/hr IV Q24HR [facility]; Protocol Last Admin: 08/03/19 10:47 Dose: 100 mls/hr Documented by: Sodium Chloride (Nacl 0.9% 1000 Ml) 1,000 mls @ 50 mls/hr IV DIRECT CLAUDIA Lisinopril (Zestril) 40 mg PO QDAY [facility] Last Admin: 08/03/19 10:48 Dose: 40 mg Documented by: Polyethylene Glycol/Electrolytes (Golytely) 4,000 ml PO ONCE ONE Stop: 08/03/19 16:01 Sodium Chloride (Sodium Chloride Flush Syringe 10 Ml) 10 ml IV BID [facility] Last Admin: 08/03/19 10:47 Dose: 10 ml Documented by: Sodium Chloride (Sodium Chloride Flush Syringe 10 Ml) 10 ml IV PRN PRN PRN Reason: LINE FLUSH Timolol Maleate (Timoptic) 1 drops OD BID [facility] Last Admin: 08/03/19 10:48 Dose: 1 drops Documented by: Review of Systems ROS unobtainable: due to mental status Exam - Vital Signs Vital signs: Vital Signs Temp Pulse Resp BP Pulse Ox 99.7 F H 79 18 114/34 98 08/02/19 11:40 08/02/19 11:40 08/02/19 11:40 08/02/19 11:40 08/02/19 11:40 - General Appearance General appearance: well-developed, well-nourished, appears stated age, other (no distress) EENT: ATNC, PERRL, mucous membranes moist, hearing intact, vision intact Neck: Present: neck supple, trachea midline Respiratory: Clear to Ascultation Heart: regular, S1S2, no murmurs Gastrointestinal: Present: normoactive bowel sounds. Absent: tenderness, distended Integumentary: no rash, warm and dry Neurologic: no focal deficit, no asterixis, disoriented Musculoskeletal: Present: other (no edema) Psychiatric: cooperative Results - Lab Results 08/04/19 05:51 08/04/19 05:51 Most recent lab results Calcium 8.3 mg/dL (8.4-10.2) L 08/03/19 Unknown - Image Kidney/bladder ultrasound: report reviewed Assessment and Plan 1. Acute kidney injury: Vasomotor AZALIA in the setting of volume depletion. Renal US was negative for obstructive uropathy. Monitor renal function. Avoid nephrotoxic agents. Meds dosage based on GFR. 2. FEN: Monitor lytes. 3. GI bleed: Followed by GI. 4. Acute Anemia 2/2 GI bleed: PRBC. 5. UTI. 6. Dementia. 7. DM.
[2019-08-03] MEDS ORDERED: DEXTROSE 50% IN WATER (25GM) 50 ML SYRINGE IV ONE ×2 (13:14→15:43)
[2019-08-03] MEDS ORDERED: D5W/0.45% NACL 1,000 ML IV SCH (14:00)
[2019-08-03 15:02] LABS: Hematocrit 27.1 % (30.3-42.9); Hemoglobin 9.1 gm/dl (10.1-14.3)
[2019-08-03 15:13] LABS: Calcium 8.5 mg/dL (8.4-10.2)
[2019-08-03] MEDS ORDERED: POLYETHYLENE GLYCOL/ELECT SOLN 4000 ML PO ONE (16:00)
[2019-08-03] MEDS: DIGOXIN 0.25 MG TAB PO SCH (17:20)
[2019-08-03 23:01] LABS: Hematocrit 25.8 % (30.3-42.9); Hemoglobin 8.8 gm/dl (10.1-14.3)
--- NOTE | 2019-08-03 23:08 | Post Anesthesia Evaluation ---
- Post Anesthesia Evaluation Patient Participated: Yes Airway Patent: Yes Stable Respiratory Function: Yes Nausea/Vomiting: No Temp > 96.8F: Yes Pain Manageable: Yes Adequeate Hydration: Yes Anesthesia Complications: No Block Receding Appropriately: Not Applicable Patient on Ventilator: No
[2019-08-04] MEDS: HEPARIN 5,000 UNIT/1 ML VIAL SUB-Q SCH ×3 (00:08→21:22)
[2019-08-04] MEDS: TIMOLOL 0.5% OPHTH SOLN 5 ML OD SCH ×3 (00:11→21:20)
[2019-08-04] MEDS: DEXTROSE 50% IN WATER (25GM) 50 ML SYRINGE IV PRN ×2 (00:16→06:13)
[2019-08-04] MEDS: PANTOPRAZOLE 80 MG in SODIUM CHLORIDE 0.9% 100 ML IV SCH ×2 (01:28→15:55)
[2019-08-04 06:06] LABS: Basophils % (Auto) 0.4 % (0.0-1.8); Eosinophils # (Auto) 0.4 K/mm3 (0.0-0.4); Eosinophils % (Auto) 3.4 % (0.0-4.3); Hematocrit 25.5 % (30.3-42.9); Hemoglobin 8.7 gm/dl (10.1-14.3); Lymphocytes % (Auto) 9.3 % (13.4-35.0); Mean Corpuscular HGB Conc 34 % (30-34); Mean Corpuscular Volume 84 fl (79-97); Monocytes # (Auto) 0.8 K/mm3 (0.0-0.8); Monocytes % (Auto) 7.3 % (0.0-7.3); Platelet Count 261 K/mm3 (140-440); Red Blood Count 3.03 M/mm3 (3.65-5.03); Red Cell Distribution Width 14.8 % (13.2-15.2)
[2019-08-04 06:18] LABS: Calcium 8.2 mg/dL (8.4-10.2)
[2019-08-04] MEDS ORDERED: hydrALAZINE 20 MG/1 ML INJ IV ONE (07:41)
[2019-08-04] MEDS: DEXTROSE 5% IN WATER 1,000 ML IV SCH ×2 (08:57→20:34)
[2019-08-04] MEDS: cefTRIAXone/NS 1 GM/50 ML 1 GM/50 ML BAG IV SCH (09:04)
--- NOTE | 2019-08-04 09:05 | Ultrasound Report ---
ULTRASOUND RENAL INDICATION: Harpal. COMPARISON: No relevant prior imaging study available. FINDINGS: RIGHT KIDNEY: Size: 12.2 cm. Echogenicity: Echogenic. Cortical thickness: 1.3 cm. Hydronephrosis: None. Cyst or mass: Several simple cysts, largest of which measures 8.4 x 5.8 x 7.2 cm.. Stones: None. LEFT KIDNEY: Size: 9.0 cm. Echogenicity: Echogenic. Cortical thickness: 1.1 cm. Hydronephrosis: None. Cyst or mass: None. Stones: None. Urinary Bladder: No significant abnormality. Free Fluid: None. Additional Findings: None. IMPRESSION 1. Echogenic kidneys characteristic for medical renal disease. No hydronephrosis. 2. Several simple right renal cysts.. Signer Name: Malvin Ramos MD Signed: 08/04/2019 9:00 AM Workstation Name: [id number]
[2019-08-04] MEDS: POTASSIUM CHLORIDE 10 MEQ 10 MEQ/100 ML BAG IV SCH ×4 (09:13→17:49)
[2019-08-04] MEDS ORDERED: hydrALAZINE 20 MG/1 ML INJ IV PRN (10:00)
[2019-08-04] MEDS ORDERED: WATER FOR IRRIG STERILE 250 ML BOTTLE IR ONE (10:50)
[2019-08-04] MEDS ORDERED: WATER FOR IRRIG STERILE 1,000 ML BOTTLE ONE (10:50)
[2019-08-04] MEDS ORDERED: LIDOCAINE MPF (2%) 20 MG/1 ML VIAL 5 ML ONE (11:00)
[2019-08-04] MEDS ORDERED: PHENYLEPHRINE/NS 1,000 MCG/10 ML SYRINGE (OR USE) IV ONE (11:00)
[2019-08-04] MEDS ORDERED: SODIUM CHLORIDE 0.9% 1000 ML 1,000 ML ONE (11:03)
[2019-08-04] MEDS ORDERED: PROPOFOL 200 MG/20 ML VIAL IV ONE ×2 (11:03→11:04)
[2019-08-04] MEDS ORDERED: MIDAZOLAM 2 MG/2 ML INJ ONE (11:04)
[2019-08-04] MEDS ORDERED: ETOMIDATE 20 MG/10 ML INJ IV ONE (11:04)
--- NOTE | 2019-08-04 11:10 | Anesthesia Day of Surgery ---
Anesthesia Day of Surgery - Day of Surgery Patient Examined: Yes Patient H&P Reviewed: Yes Patient is NPO: Yes
[2019-08-04] MEDS ORDERED: SODIUM CHLORIDE 0.9% 1000 ML 1,000 ML IV SCH (12:00)
[2019-08-04] MEDS: LISINOPRIL 40 MG TAB PO SCH (13:00)
--- NOTE | 2019-08-04 13:40 | Progress Note ---
Assessment and Plan 1. Acute kidney injury: Vasomotor AZALIA in the setting of volume depletion. Renal US was negative for obstructive uropathy. Continue IV fluids. Renal function is improving. Monitor renal function. Avoid nephrotoxic agents. Meds dosage based on GFR. 2. FEN: Hypernatremia, hypotonic IV fluids. Replete K. Monitor lytes. 3. GI bleed: Followed by GI. s/p EGD. 4. Acute Anemia 2/2 GI bleed: S/p PRBC. 5. UTI. 6. Dementia. 7. DM. D/w her daughter and answered all questions. Examination: General appearance: well-developed, well-nourished, appears stated age, no distress HEENT: ATNC, TANYA, mucous membranes moist, vision intact Neck: supple, trachea midline Respiratory: Clear to Ascultation Heart: regular, S1S2, no murmur Gastrointestinal: normoactive bowel sounds, not tender, not distended Integumentary: no rash, warm and dry Neurologic: no focal deficit, no asterixis, confused Musculoskeletal: no edema Psychiatric: cooperative Subjective Date of service: 08/04/19 Interval history: Patient was seen and examined at the bedside. Objective - Vital Signs Vital signs: Vital Signs - 12hr 08/04/19 08/04/19 08/04/19 02:01 03:01 03:44 Temperature 98.5 F Pulse Rate 56 L 59 L Respiratory 19 22 Rate Blood Pressure 142/46 164/57 O2 Sat by Pulse 100 100 Oximetry 08/04/19 08/04/19 08/04/19 04:00 05:01 06:01 Temperature Pulse Rate 63 60 59 L Respiratory 20 17 24 Rate Blood Pressure 164/57 174/70 170/55 O2 Sat by Pulse 100 100 100 Oximetry 08/04/19 08/04/19 08/04/19 07:01 08:00 08:01 Temperature 98.7 F Pulse Rate 58 L 64 59 L Respiratory 21 24 Rate Blood Pressure 170/111 170/111 158/85 O2 Sat by Pulse 100 99 Oximetry 08/04/19 08/04/19 08/04/19 09:01 10:00 10:01 Temperature Pulse Rate 72 75 64 Respiratory 20 19 Rate Blood Pressure 116/27 116/27 O2 Sat by Pulse 100 100 100 Oximetry 08/04/19 08/04/19 08/04/19 11:01 11:05 12:01 Temperature 98.7 F Pulse Rate 70 64 71 Respiratory 23 22 30 H Rate Blood Pressure 150/60 140/56 116/35 O2 Sat by Pulse 100 100 100 Oximetry 08/04/19 12:18 Temperature 98.7 F Pulse Rate 71 Respiratory 30 H Rate Blood Pressure 116/35 O2 Sat by Pulse 100 Oximetry - Lab 08/04/19 05:51 08/04/19 05:51 Most recent lab results Calcium 8.2 mg/dL (8.4-10.2) L 08/04/19 05:51 Medications & Allergies - Medications Allergies/Adverse Reactions: Allergies No Known Allergies Allergy (Verified 09/12/15 06:15) Home Medications: Home Medications Medication Instructions Recorded Confirmed Last Taken Type Benazepril HCl [Lotensin] 40 mg PO DAILY 09/12/15 09/12/15 09/11/15 History Carvedilol [Coreg] 6.25 mg PO BID 09/12/15 09/12/15 09/11/15 History Digoxin [Digox] 250 mcg PO DAILY 09/12/15 09/12/15 09/11/15 History Furosemide [Lasix TAB] 20 mg PO QDAY PRN 09/12/15 09/12/15 09/11/15 History Megestrol Acetate [Megace] 40 mg PO DAILY 09/12/15 09/12/15 09/11/15 History Timolol 0.5% [Timoptic] 1 drops OP BID 09/12/15 09/12/15 09/11/15 History Active Medications: Generic Name Dose Route Start Last Admin Trade Name Dreq PRN Reason Stop Dose Admin Albuterol 2.5 mg 08/02/19 17:00 Proventil IH Q3HRT PRN Shortness Of Breath Dextrose 25 ml 08/03/19 15:43 08/04/19 06:13 D50w (25gm) Syringe IV 25 ml PRN PRN Administration Hypoglycemia Digoxin 0.25 mg 08/03/19 17:00 08/03/19 17:20 Lanoxin PO Not Given DAILY@1700 [facility] Heparin Sodium (Porcine) 5,000 unit 08/02/19 22:00 08/04/19 12:59 Heparin SUB-Q Not Given Q12HR [facility] Hydralazine HCl 10 mg 08/04/19 10:00 Apresoline IV Q4HR PRN Hypertension Pantoprazole Sodium 80 mg/ 100 mls @ 10 mls/hr 08/02/19 15:00 08/04/19 01:28 Sodium Chloride IV 8 mg/hr DIRECT CLAUDIA 10 mls/hr Administration 8 MG/HR Ceftriaxone Sodium 1 gm in 50 mls @ 100 mls/hr 08/02/19 15:00 08/04/19 09:04 Rocephin/Ns 1 Gm/50 Ml IV 100 mls/hr Q24HR CLAUDIA Administration Protocol Dextrose/Sodium Chloride 1,000 mls @ 75 mls/hr 08/03/19 14:00 D5/0.45ns IV DIRECT CLAUDIA Dextrose 1,000 mls @ 100 mls/hr 08/04/19 08:00 08/04/19 08:57 D5w IV 100 mls/hr DIRECT CLAUDIA Administration Sodium Chloride 1,000 mls @ 50 mls/hr 08/04/19 12:00 Nacl 0.9% 1000 Ml IV DIRECT CLAUDIA Lisinopril 40 mg 08/03/19 10:00 08/04/19 13:00 Zestril PO Not Given QDAY CLAUDIA Sodium Chloride 10 ml 08/02/19 22:00 08/04/19 00:11 Sodium Chloride Flush Syringe 10 Ml IV 10 ml BID CLAUDIA Administration Sodium Chloride 10 ml 08/02/19 15:00 Sodium Chloride Flush Syringe 10 Ml IV PRN PRN LINE FLUSH Timolol Maleate 1 drops 08/02/19 22:00 08/04/19 09:02 Timoptic OD 1 drops BID CLAUDIA Administration
--- NOTE | 2019-08-04 14:01 | Progress Note ---
Assessment and Plan Assessment and plan: -- Acute GI bleeding: Current Visit: Yes Status: Acute s/p Colonoscopy;08/04/19 Findings reviewed COLON: multiple medium/large diverticuli sigmoid/ascending colon - no signs bleeding noted - 8 mm polyp ascending, 15-18 mm polyp recto-sigmoid (hot snare polypectomy both) - larger 2-2 1/2cm polyps caecum on underside IC valve, broad based, concern for possible malignancy, not removed (noted no david ink available for marking), cold bx's - internal hemorrhoids - negative other S/P EGD :08/03/19 FINDINGS: 1. Mild erythematous mucosa in the antrum. No signs of bleeding. 2. Normal duodenum exam to the second portion. 3. Regular z-line at 40 cm from the incisors. 4. Normal esophagus. RECOMMENDATIONS: 1. Resume clear liquid diet. 2. Will plan for colonoscopy tomorrow. 3. Golytely prep and NPO MN. 4. Updated the family and agreeable for colonoscopy. 5. Monitor H/H every 8 hrs. Continue IV PPI therapy Possible Colonoscopy tomorrow --Acute blood loss anemia: Hemoglobin 4.8 at the time of admission S/P 3 units PRBC transfusion Hb 8.1 Monitor H&H transfuse additional as needed ---- AZALIA (acute kidney injury) Current Visit: Yes Status: Acute . IVF resuscitation therapy, renal ultrasound, monitor serum creatnine, Nephrology following --UTI (urinary tract infection) Current Visit: Yes Status: Acute IV antibiotic therapy, follow cultures -- Encephalopathy Current Visit: Yes Status: Acute supportive care, Treat UTI, neuro checks, aspiration precautions, --HTN (hypertension) Current Visit: Yes Status: Acute Monitor BP q shift, supportive care -- HLD (hyperlipidemia) Current Visit: Yes Status: Acute low fat, low cholesterol diet, --Mild Malnutrition/hypoalbuminemia: Nutrition suppliments,supportive care --DVT prophylaxis Current Visit: Yes Status: Acute SCD to BLE while in bed, Prophylactic heparin. GI cleared for transfer out of [facility] Critical care time 32 minutes History Interval history: Sincerely and examined this morning medical records reviewed Patient underwent colonoscopy Patient is sedated and resting Vital signs noted Hospitalist Physical - Constitutional Vitals: Temp Pulse Resp BP Pulse Ox 98.7 F 71 30 H 116/35 100 08/04/19 12:18 08/04/19 12:18 08/04/19 12:18 08/04/19 12:18 08/04/19 12:18 General appearance: Present: no acute distress, well-nourished, other (resting) - EENT Eyes: Present: PERRL, EOM intact - Neck Neck: Present: supple, normal ROM - Respiratory Respiratory effort: normal Respiratory: bilateral: diminished, negative: rales, rhonchi, wheezing - Cardiovascular Rhythm: regular Heart Sounds: Present: S1 & S2 - Extremities Extremities: no ischemia, No edema - Abdominal General gastrointestinal: soft, non-tender, non-distended, normal bowel sounds - Integumentary Integumentary: Present: clear, warm - Psychiatric Psychiatric: other (sleeping) - Neurologic Neurologic: other (sleeping) Results - Labs CBC & Chem 7: 08/04/19 05:51 08/04/19 05:51 Labs: Laboratory Last Values WBC 10.8 K/mm3 (4.5-11.0) 08/04/19 05:51 RBC 3.03 M/mm3 (3.65-5.03) L 08/04/19 05:51 Hgb 8.7 gm/dl (10.1-14.3) L 08/04/19 05:51 Hct 25.5 % (30.3-42.9) L 08/04/19 05:51 MCV 84 fl (79-97) 08/04/19 05:51 MCH 29 pg (28-32) 08/04/19 05:51 MCHC 34 % (30-34) 08/04/19 05:51 RDW 14.8 % (13.2-15.2) 08/04/19 05:51 Plt Count 261 K/mm3 (140-440) 08/04/19 05:51 Lymph % (Auto) 9.3 % (13.4-35.0) L 08/04/19 05:51 [place] % (Auto) 7.3 % (0.0-7.3) 08/04/19 05:51 Eos % (Auto) 3.4 % (0.0-4.3) 08/04/19 05:51 Baso % (Auto) 0.4 % (0.0-1.8) 08/04/19 05:51 Lymph # 1.0 K/mm3 (1.2-5.4) L 08/04/19 05:51 [place] # 0.8 K/mm3 (0.0-0.8) 08/04/19 05:51 Eos # 0.4 K/mm3 (0.0-0.4) 08/04/19 05:51 Baso # 0.0 K/mm3 (0.0-0.1) 08/04/19 05:51 Seg Neutrophils % 79.6 % (40.0-70.0) H 08/04/19 05:51 Seg Neutrophils # 8.6 K/mm3 (1.8-7.7) H 08/04/19 05:51 PT 14.4 Sec. (12.2-14.9) 08/03/19 10:00 INR 1.15 (0.87-1.13) H 08/03/19 10:00 VBG pH 7.397 (7.320-7.420) 08/02/19 13:36 Sodium 149 mmol/L (137-145) H 08/04/19 05:51 Potassium 3.3 mmol/L (3.6-5.0) L 08/04/19 05:51 Chloride 111.0 mmol/L (98-107) H 08/04/19 05:51 Carbon Dioxide 23 mmol/L (22-30) 08/04/19 05:51 Anion Gap 18 mmol/L 08/04/19 05:51 BUN 16 mg/dL (7-17) 08/04/19 05:51 Creatinine 1.1 mg/dL (0.7-1.2) 08/04/19 05:51 Estimated GFR 57 ml/min 08/04/19 05:51 BUN/Creatinine Ratio 15 % 08/04/19 05:51 Glucose 105 mg/dL (65-100) H 08/04/19 05:51 POC Glucose 113 (70-105) H 08/04/19 12:48 Lactic Acid 1.40 mmol/L (0.7-2.0) 08/03/19 14:31 Calcium 8.2 mg/dL (8.4-10.2) L 08/04/19 05:51 Total Bilirubin 0.60 mg/dL (0.1-1.2) 08/03/19 Unknown AST 34 units/L (5-40) 08/03/19 Unknown ALT 14 units/L (7-56) 08/03/19 Unknown Alkaline Phosphatase 75 units/L (35-129) 08/03/19 Unknown Total Protein 5.9 g/dL (6.3-8.2) L 08/03/19 Unknown Albumin 3.2 g/dL (3.9-5) L 08/03/19 Unknown Albumin/Globulin Ratio 1.2 % 08/03/19 Unknown Lipase 16 units/L (13-60) 08/02/19 12:45 Urine Color Yellow (Yellow) 08/02/19 13:22 Urine Turbidity Cloudy (Clear) 08/02/19 13:22 Urine pH 5.0 (5.0-7.0) 08/02/19 13:22 Ur Specific [place] 1.012 (1.003-1.030) 08/02/19 13:22 Urine Protein <15 mg/dl mg/dL (Negative) 08/02/19 13:22 Urine Glucose (UA) Neg mg/dL (Negative) 08/02/19 13:22 Urine Ketones Neg mg/dL (Negative) 08/02/19 13:22 Urine Blood Neg (Negative) 08/02/19 13:22 Urine Nitrite Neg (Negative) 08/02/19 13:22 Urine Bilirubin Neg (Negative) 08/02/19 13:22 Urine Urobilinogen < 2.0 mg/dL (<2.0) 08/02/19 13:22 Ur Leukocyte Esterase Lg (Negative) 08/02/19 13:22 Urine WBC (Auto) 46.0 /HPF (0.0-6.0) H 08/02/19 13:22 Urine RBC (Auto) 2.0 /HPF (0.0-6.0) 08/02/19 13:22 U Epithel Cells (Auto) < 1.0 /HPF (0-13.0) 08/02/19 13:22 Urine Bacteria (Auto) 4+ /HPF (Negative) 08/02/19 13:22 Urine WBC Clumps 3+ /HPF 08/02/19 13:22 Hyaline Casts 10 /LPF 08/02/19 13:22 Urine Mucus Few /HPF 08/02/19 13:22 Digoxin 0.2 ng/mL (0.9-2.0) L 08/02/19 13:36 Blood Type O POSITIVE 08/02/19 13:36 Antibody Screen Negative 08/02/19 13:36 Crossmatch See Detail 08/02/19 13:36 Active Medications - Current Medications Current Medications: Generic Name Dose Route Start Last Admin Trade Name Freq PRN Reason Stop Dose Admin Albuterol 2.5 mg 08/02/19 17:00 Proventil IH Q3HRT PRN Shortness Of Breath Dextrose 25 ml 08/03/19 15:43 08/04/19 06:13 D50w (25gm) Syringe IV 25 ml PRN PRN Administration Hypoglycemia Digoxin 0.25 mg 08/03/19 17:00 08/03/19 17:20 Lanoxin PO Not Given DAILY@1700 CLAUDIA Heparin Sodium (Porcine) 5,000 unit 08/02/19 22:00 08/04/19 12:59 Heparin SUB-Q Not Given Q12HR CLAUDIA Hydralazine HCl 10 mg 08/04/19 10:00 Apresoline IV Q4HR PRN Hypertension Pantoprazole Sodium 80 mg/ 100 mls @ 10 mls/hr 08/02/19 15:00 08/04/19 01:28 Sodium Chloride IV 8 mg/hr DIRECT CLAUDIA 10 mls/hr Administration 8 MG/HR Ceftriaxone Sodium 1 gm in 50 mls @ 100 mls/hr 08/02/19 15:00 08/04/19 09:04 Rocephin/Ns 1 Gm/50 Ml IV 100 mls/hr Q24HR CLAUDIA Administration Protocol Dextrose/Sodium Chloride 1,000 mls @ 75 mls/hr 08/03/19 14:00 D5/0.45ns IV DIRECT CLAUDIA Dextrose 1,000 mls @ 100 mls/hr 08/04/19 08:00 08/04/19 08:57 D5w IV 100 mls/hr DIRECT CLAUDIA Administration Sodium Chloride 1,000 mls @ 50 mls/hr 08/04/19 12:00 Nacl 0.9% 1000 Ml IV DIRECT CLAUDIA Lisinopril 40 mg 08/03/19 10:00 08/04/19 13:00 Zestril PO Not Given QDAY CLAUDIA Sodium Chloride 10 ml 08/02/19 22:00 08/04/19 00:11 Sodium Chloride Flush Syringe 10 Ml IV 10 ml BID CLAUDIA Administration Sodium Chloride 10 ml 08/02/19 15:00 Sodium Chloride Flush Syringe 10 Ml IV PRN PRN LINE FLUSH Timolol Maleate 1 drops 08/02/19 22:00 08/04/19 09:02 Timoptic OD 1 drops BID CLAUDIA Administration Nutrition/Malnutrition Assess - Dietary Evaluation Nutrition/Malnutrition Findings: Nutrition Notes Start: 08/03/19 09:40 Freq: Status: Active Protocol: Document 08/03/19 09:40 KS (Rec: 08/03/19 10:23 KS [id number]) Co-Sign 08/03/19 09:40 LM Nutrition Notes Need for Assessment generated from: payroll lead Initial or Follow up Assessment Current Diagnosis Acute Kidney Injury,Diabetes, Hypertension,Hyperlipidemia Other Pertinent Diagnosis Dementia, GI bleed, Anemia, UTI, encephalopathy Current Diet NPO Labs/Tests BUN 33 CR 1.4 Ca 8.3 Pertinent Medications Reviewed Height 5 ft 4 in Weight 60.3 kg Usual Body Weight 60 kg [place] Body Weight (kg) 54.54 BMI 22.8 Intake Prior to Admission Excellent Weight Status Appropriate Subjective/Other Information RN screen for skin risk. Kyle score 18. Daughter at bedside. Per daughter, pt had good appetite and was eating meals 2-3x daily with a snack JOB TRAINER. Reports no wt change and a UBW of 131lbs. Reports no chewing or swallowing difficulty. Pt reports feeling hungry at time of visit. Follow for diet advancement. Burn Absent Trauma Absent Minimum of two criteria No #1 Nutrition Diagnosis Inadequate oral intake Etiology GI bleed As Evidenced by Signs and Symptoms Pt is NPO Is patient on ventilator? No Is Patient Ambulatory and/or Out of Bed Yes REE-([facility]-ambulatory/OOB) [ 1336.400 [id number]] Kcal/Kg value to use for calculation 27 Approximate Energy Requirements Using 1628 kcal/Kg Calculation Used for Recommendations Kcal/kg Additional Notes PRO: 48-72g/day (0.8-1.2g/kg/ day) Fluid: 1mL/kcal Nutrition Intervention Change Diet Order: Advance diet when medically feasible Goal #1 Advance diet when medically feasible Anticipated Discharge Needs: Unable to determine at this time Follow-Up By: 08/06/19 Additional Comments Follow for diet advancement
--- NOTE | 2019-08-04 14:13 | Post Operative Note ---
Pre-op diagnosis: GI bleed Post-op diagnosis: same Findings: COLON: multiple medium/large diverticuli sigmoid/ascending colon - no signs bleeding noted - 8 mm polyp ascending, 15-18 mm polyp recto-sigmoid (hot snare polypectomy both) - larger 2-2 1/2cm polyps caecum on underside IC valve, broad based, concern for possible malignancy, not removed (noted no david ink available for marking), cold bx's - internal hemorrhoids - negative other Procedure: colonoscopy Anesthesia: MAC Surgeon: DELORES PERSON Estimated blood loss: none Pathology: list Specimen disposition: to lab Condition: stable Disposition: floor
[2019-08-04] MEDS ORDERED: POTASSIUM CHLORIDE ER 20 MEQ TAB PO ONE (14:14)
--- NOTE | 2019-08-04 14:18 | Gastroenterology Progress Note ---
Assessment and Plan GI: s/p colon, see procedure note for finding - follow h/h, transfuse as needed - follow up bx's results - surgery consult for remained colon lesion - start po - if h/h stable ok to transfer to floor - will follow Subjective Date of service: 08/04/19 Interval history: - no further bleeding overnight Objective - Constitutional Vitals: Temp Pulse Resp BP Pulse Ox 98.7 F 71 30 H 116/35 100 08/04/19 12:18 08/04/19 12:18 08/04/19 12:18 08/04/19 12:18 08/04/19 12:18 General appearance: no acute distress - EENT Eyes: PERRL - Respiratory Respiratory: bilateral: CTA - Cardiovascular Rhythm: regular Heart Sounds: Present: S1 & S2 - Gastrointestinal General gastrointestinal: Present: soft, non-tender, non-distended - Labs CBC & Chem 7: 08/04/19 05:51 08/04/19 05:51 Labs: Laboratory Results - last 24 hr 08/03/19 08/03/19 08/03/19 14:31 14:31 14:31 WBC RBC Hgb 9.1 L Hct 27.1 L MCV MCH MCHC RDW Plt Count Lymph % (Auto) [place] % (Auto) Eos % (Auto) Baso % (Auto) Lymph # [place] # Eos # Baso # Seg Neutrophils % Seg Neutrophils # Sodium 147 H Potassium 3.6 Chloride 111.0 H Carbon Dioxide 23 Anion Gap 17 BUN 26 H Creatinine 1.3 H Estimated GFR 47 BUN/Creatinine Ratio 20 Glucose 111 H POC Glucose Lactic Acid 1.40 Calcium 8.5 08/03/19 08/03/19 08/03/19 14:35 17:05 22:48 WBC RBC Hgb 8.8 L Hct 25.8 L MCV MCH MCHC RDW Plt Count Lymph % (Auto) [place] % (Auto) Eos % (Auto) Baso % (Auto) Lymph # [place] # Eos # Baso # Seg Neutrophils % Seg Neutrophils # Sodium Potassium Chloride Carbon Dioxide Anion Gap BUN Creatinine Estimated GFR BUN/Creatinine Ratio Glucose POC Glucose 113 H 93 Lactic Acid Calcium 08/03/19 08/04/19 08/04/19 23:41 05:51 05:51 WBC 10.8 RBC 3.03 L Hgb 8.7 L Hct 25.5 L MCV 84 MCH 29 MCHC 34 RDW 14.8 Plt Count 261 Lymph % (Auto) 9.3 L [place] % (Auto) 7.3 Eos % (Auto) 3.4 Baso % (Auto) 0.4 Lymph # 1.0 L [place] # 0.8 Eos # 0.4 Baso # 0.0 Seg Neutrophils % 79.6 H Seg Neutrophils # 8.6 H Sodium 149 H Potassium 3.3 L Chloride 111.0 H Carbon Dioxide 23 Anion Gap 18 BUN 16 Creatinine 1.1 Estimated GFR 57 BUN/Creatinine Ratio 15 Glucose 105 H POC Glucose 74 Lactic Acid Calcium 8.2 L 08/04/19 08/04/19 08/04/19 06:10 08:16 12:48 WBC RBC Hgb Hct MCV MCH MCHC RDW Plt Count Lymph % (Auto) [place] % (Auto) Eos % (Auto) Baso % (Auto) Lymph # [place] # Eos # Baso # Seg Neutrophils % Seg Neutrophils # Sodium Potassium Chloride Carbon Dioxide Anion Gap BUN Creatinine Estimated GFR BUN/Creatinine Ratio Glucose POC Glucose < 40 L 131 H 113 H Lactic Acid Calcium
--- NOTE | 2019-08-04 14:59 | Operative Report ---
PROCEDURE: Colonoscopy with hot snare polypectomy and cold biopsies. INDICATIONS: 1. Anemia. 2. Gastrointestinal bleed. MEDICATIONS: Propofol per HOSPITAL SUPERVISOR. COMPLICATIONS: None. DESCRIPTION OF PROCEDURE: Procedure was done at ____ Intensive Care Unit. The patient had the procedure discussed with her and her daughter at length. All risks, complications, and benefits were discussed after which consent was signed for the procedure to be performed. The patient was placed in left lateral decubitus position. Rectal exam performed prior to insertion of the scope. After adequate sedation medication as above, scope inserted into the rectum, brought to the level of cecum. Ileocecal valve and appendiceal orifice, cecal strap were visualized. Colonoscope was then removed and mucosa visualized. Prep quality was poor. The patient's vital signs remained stable throughout the procedure. FINDINGS: There was noted to be a single 8 mm sessile small polyp in the ascending colon. There was also noted to be at approximately 15-18 mm pedunculated polyp noted in the rectosigmoid. Hot snare polypectomy technique was applied with removal and retrieval of all polyps and sent for pathology. There was a large 2-2.5 cm lesion in the cecum. The cecum itself was on the underside of the ileocecal valve and was broad-based. Given that poor prep in the patient's movement due to breathing, only cold biopsies were performed and the lesion was not attempted to be removed. Increased risk for perforation. There were no other mass lesions or polyps noted. There were multiple medium to large sigmoid and ascending colon diverticula. Retroflexion view performed in the rectum showed medium internal hemorrhoids. The patient tolerated the procedure well. No complications during the procedure. IMPRESSION: 1. Polyp x 2, status post hot snare polypectomy. 2. Large polyp in the cecum, unable to be removed with cold biopsies taken. It should be noted no Caren ink was available for marking. 3. Diverticulosis, which most likely source of the patient's bleeding. 4. Internal hemorrhoids. RECOMMENDATIONS: 1. Follow up biopsy results. 2. Surgery consult. 3. Advanced diet. 4. We will follow. JOB# [id number] CAB/NTS
[2019-08-04 15:29] LABS: Basophils % (Auto) 0.2 % (0.0-1.8); Eosinophils # (Auto) 0.3 K/mm3 (0.0-0.4); Eosinophils % (Auto) 3.1 % (0.0-4.3); Hematocrit 26.2 % (30.3-42.9); Hemoglobin 8.8 gm/dl (10.1-14.3); Lymphocytes # (Auto) 1.3 K/mm3 (1.2-5.4); Lymphocytes % (Auto) 11.7 % (13.4-35.0); Mean Corpuscular HGB Conc 33 % (30-34); Mean Corpuscular Volume 85 fl (79-97); Monocytes # (Auto) 0.8 K/mm3 (0.0-0.8); Monocytes % (Auto) 7.4 % (0.0-7.3); Platelet Count 264 K/mm3 (140-440); Red Blood Count 3.09 M/mm3 (3.65-5.03); Red Cell Distribution Width 14.9 % (13.2-15.2)
[2019-08-04] MEDS: DIGOXIN 0.25 MG TAB PO SCH (17:48)
[2019-08-05] MEDS: PANTOPRAZOLE 80 MG in SODIUM CHLORIDE 0.9% 100 ML IV SCH ×2 (02:17→14:17)
[2019-08-05] MEDS: DEXTROSE 5% IN WATER 1,000 ML IV SCH ×2 (05:15→18:11)
[2019-08-05 05:49] LABS: Basophils % (Auto) 0.4 % (0.0-1.8); Eosinophils # (Auto) 0.5 K/mm3 (0.0-0.4); Eosinophils % (Auto) 4.8 % (0.0-4.3); Hematocrit 24.9 % (30.3-42.9); Hemoglobin 8.4 gm/dl (10.1-14.3); Lymphocytes # (Auto) 1.2 K/mm3 (1.2-5.4); Lymphocytes % (Auto) 11.8 % (13.4-35.0); Mean Corpuscular HGB Conc 34 % (30-34); Mean Corpuscular Volume 86 fl (79-97); Monocytes # (Auto) 0.7 K/mm3 (0.0-0.8); Monocytes % (Auto) 6.5 % (0.0-7.3); Platelet Count 261 K/mm3 (140-440); Red Cell Distribution Width 14.9 % (13.2-15.2)
[2019-08-05 06:04] LABS: Calcium 8.1 mg/dL (8.4-10.2)
--- NOTE | 2019-08-05 07:52 | Progress Note ---
Assessment and Plan Assessment and plan: --Large cecal polyp; concern for malignancy Surgery consult as recommended by GI CT abdomen and pelvis with contrast, CEA Discussed with Dr. Walker Pending Pathology report --Acute GI bleeding: s/p Colonoscopy;08/04/19 Findings reviewed COLON: multiple medium/large diverticuli sigmoid/ascending colon - no signs bleeding noted - 8 mm polyp ascending, 15-18 mm polyp recto-sigmoid (hot snare polypectomy both) - larger 2-2 1/2cm polyps caecum on underside IC valve, broad based, concern for possible malignancy, not removed (noted no daivd ink available for marking), cold bx's - internal hemorrhoids - negative other S/P EGD :08/03/19 FINDINGS: 1. Mild erythematous mucosa in the antrum. No signs of bleeding. 2. Normal duodenum exam to the second portion. 3. Regular z-line at 40 cm from the incisors. 4. Normal esophagus. RECOMMENDATIONS: 1. Resume clear liquid diet. 2. Will plan for colonoscopy tomorrow. 3. Golytely prep and NPO MN. 4. Updated the family and agreeable for colonoscopy. 5. Monitor H/H every 8 hrs. Continue IV PPI therapy Possible Colonoscopy tomorrow --Acute blood loss anemia: Hemoglobin 4.8 at the time of admission S/P 3 units PRBC transfusion Hb 8.1 Monitor H&H transfuse additional as needed ---- AZALIA (acute kidney injury) Current Visit: Yes Status: Acute . IVF resuscitation therapy, renal ultrasound, monitor serum creatnine, Nephrology following --UTI (urinary tract infection) Current Visit: Yes Status: Acute IV antibiotic therapy, follow cultures -- Encephalopathy Current Visit: Yes Status: Acute supportive care, Treat UTI, neuro checks, aspiration precautions, --HTN (hypertension) Current Visit: Yes Status: Acute Monitor BP q shift, supportive care -- HLD (hyperlipidemia) Current Visit: Yes Status: Acute low fat, low cholesterol diet, --Mild Malnutrition/hypoalbuminemia: Nutrition suppliments,supportive care --DVT prophylaxis Current Visit: Yes Status: Acute SCD to BLE while in bed, Prophylactic heparin. Critical care time 31 minutes History Interval history: Patient had colonoscopy yesterday , multiple polyps biopsied Large cecal polyp concern for malignancy will consult surgery . Hospitalist Physical - Constitutional Vitals: Temp Pulse Resp BP Pulse Ox 98.9 F 62 18 160/53 96 08/05/19 07:07 08/05/19 07:07 08/05/19 07:07 08/05/19 07:07 08/05/19 07:20 General appearance: Present: no acute distress, well-nourished, other (resting) - EENT Eyes: Present: PERRL, EOM intact - Neck Neck: Present: supple, normal ROM - Respiratory Respiratory effort: normal Respiratory: bilateral: diminished, negative: rales, rhonchi, wheezing - Cardiovascular Rhythm: regular Heart Sounds: Present: S1 & S2 - Extremities Extremities: no ischemia, No edema - Abdominal General gastrointestinal: soft, non-tender, non-distended, normal bowel sounds - Integumentary Integumentary: Present: clear, warm - Psychiatric Psychiatric: appropriate mood/affect, cooperative - Neurologic Neurologic: CNII-XII intact, moves all extremities Results - Labs CBC & Chem 7: 08/05/19 05:26 08/05/19 05:26 Labs: Laboratory Last Values WBC 10.3 K/mm3 (4.5-11.0) 08/05/19 05:26 RBC 2.90 M/mm3 (3.65-5.03) L 08/05/19 05:26 Hgb 8.4 gm/dl (10.1-14.3) L 08/05/19 05:26 Hct 24.9 % (30.3-42.9) L 08/05/19 05:26 MCV 86 fl (79-97) 08/05/19 05:26 MCH 29 pg (28-32) 08/05/19 05:26 MCHC 34 % (30-34) 08/05/19 05:26 RDW 14.9 % (13.2-15.2) 08/05/19 05:26 Plt Count 261 K/mm3 (140-440) 08/05/19 05:26 Lymph % (Auto) 11.8 % (13.4-35.0) L 08/05/19 05:26 Kerr % (Auto) 6.5 % (0.0-7.3) 08/05/19 05:26 Eos % (Auto) 4.8 % (0.0-4.3) H 08/05/19 05:26 Baso % (Auto) 0.4 % (0.0-1.8) 08/05/19 05:26 Lymph # 1.2 K/mm3 (1.2-5.4) 08/05/19 05:26 Kerr # 0.7 K/mm3 (0.0-0.8) 08/05/19 05:26 Eos # 0.5 K/mm3 (0.0-0.4) H 08/05/19 05:26 Baso # 0.0 K/mm3 (0.0-0.1) 08/05/19 05:26 Seg Neutrophils % 76.5 % (40.0-70.0) H 08/05/19 05:26 Seg Neutrophils # 7.9 K/mm3 (1.8-7.7) H 08/05/19 05:26 PT 14.4 Sec. (12.2-14.9) 08/03/19 10:00 INR 1.15 (0.87-1.13) H 08/03/19 10:00 VBG pH 7.397 (7.320-7.420) 08/02/19 13:36 Sodium 140 mmol/L (137-145) D 08/05/19 05:26 Potassium 4.0 mmol/L (3.6-5.0) D 08/05/19 05:26 Chloride 106.2 mmol/L (98-107) 08/05/19 05:26 Carbon Dioxide 22 mmol/L (22-30) 08/05/19 05:26 Anion Gap 16 mmol/L 08/05/19 05:26 BUN 8 mg/dL (7-17) 08/05/19 05:26 Creatinine 1.1 mg/dL (0.7-1.2) 08/05/19 05:26 Estimated GFR 57 ml/min 08/05/19 05:26 BUN/Creatinine Ratio 7 % 08/05/19 05:26 Glucose 133 mg/dL (65-100) H 08/05/19 05:26 POC Glucose 105 (70-105) 08/05/19 06:35 Lactic Acid 1.40 mmol/L (0.7-2.0) 08/03/19 14:31 Calcium 8.1 mg/dL (8.4-10.2) L 08/05/19 05:26 Phosphorus 2.00 mg/dL (2.5-4.5) L 08/05/19 05:26 Magnesium 1.80 mg/dL (1.7-2.3) 08/05/19 05:26 Total Bilirubin 0.60 mg/dL (0.1-1.2) 08/03/19 Unknown AST 34 units/L (5-40) 08/03/19 Unknown ALT 14 units/L (7-56) 08/03/19 Unknown Alkaline Phosphatase 75 units/L (35-129) 08/03/19 Unknown Total Protein 5.9 g/dL (6.3-8.2) L 08/03/19 Unknown Albumin 3.2 g/dL (3.9-5) L 08/03/19 Unknown Albumin/Globulin Ratio 1.2 % 08/03/19 Unknown Lipase 16 units/L (13-60) 08/02/19 12:45 Urine Color Yellow (Yellow) 08/02/19 13:22 Urine Turbidity Cloudy (Clear) 08/02/19 13:22 Urine pH 5.0 (5.0-7.0) 08/02/19 13:22 Ur Specific [place] 1.012 (1.003-1.030) 08/02/19 13:22 Urine Protein <15 mg/dl mg/dL (Negative) 08/02/19 13:22 Urine Glucose (UA) Neg mg/dL (Negative) 08/02/19 13:22 Urine Ketones Neg mg/dL (Negative) 08/02/19 13:22 Urine Blood Neg (Negative) 08/02/19 13:22 Urine Nitrite Neg (Negative) 08/02/19 13:22 Urine Bilirubin Neg (Negative) 08/02/19 13:22 Urine Urobilinogen < 2.0 mg/dL (<2.0) 08/02/19 13:22 Ur Leukocyte Esterase Lg (Negative) 08/02/19 13:22 Urine WBC (Auto) 46.0 /HPF (0.0-6.0) H 08/02/19 13:22 Urine RBC (Auto) 2.0 /HPF (0.0-6.0) 08/02/19 13:22 U Epithel Cells (Auto) < 1.0 /HPF (0-13.0) 08/02/19 13:22 Urine Bacteria (Auto) 4+ /HPF (Negative) 08/02/19 13:22 Urine WBC Clumps 3+ /HPF 08/02/19 13:22 Hyaline Casts 10 /LPF 08/02/19 13:22 Urine Mucus Few /HPF 08/02/19 13:22 Digoxin 0.2 ng/mL (0.9-2.0) L 08/02/19 13:36 Blood Type O POSITIVE 08/02/19 13:36 Antibody Screen Negative 08/02/19 13:36 Crossmatch See Detail 08/02/19 13:36 Active Medications - Current Medications Current Medications: Generic Name Dose Route Start Last Admin Trade Name Freq PRN Reason Stop Dose Admin Albuterol 2.5 mg 08/02/19 17:00 Proventil IH Q3HRT PRN Shortness Of Breath Dextrose 25 ml 08/03/19 15:43 08/04/19 06:13 D50w (25gm) Syringe IV 25 ml PRN PRN Administration Hypoglycemia Digoxin 0.25 mg 08/03/19 17:00 08/04/19 17:48 Lanoxin PO 0.25 mg DAILY@1700 CLAUDIA Administration Hydralazine HCl 10 mg 08/04/19 10:00 Apresoline IV Q4HR PRN Hypertension Pantoprazole Sodium 80 mg/ 100 mls @ 10 mls/hr 08/02/19 15:00 08/05/19 02:17 Sodium Chloride IV 8 mg/hr DIRECT CLAUDIA 10 mls/hr Administration 8 MG/HR Ceftriaxone Sodium 1 gm in 50 mls @ 100 mls/hr 08/02/19 15:00 08/04/19 09:04 Rocephin/Ns 1 Gm/50 Ml IV 100 mls/hr Q24HR CLAUDIA Administration Protocol Dextrose 1,000 mls @ 100 mls/hr 08/04/19 08:00 08/05/19 05:15 D5w IV 100 mls/hr DIRECT CLAUDIA Administration Sodium Chloride 1,000 mls @ 50 mls/hr 08/04/19 12:00 Nacl 0.9% 1000 Ml IV DIRECT CLAUDIA Lisinopril 40 mg 08/03/19 10:00 08/04/19 13:00 Zestril PO Not Given QDAY CLAUDIA Sodium Chloride 10 ml 08/02/19 22:00 08/04/19 21:22 Sodium Chloride Flush Syringe 10 Ml IV 10 ml BID CLAUDIA Administration Sodium Chloride 10 ml 08/02/19 15:00 Sodium Chloride Flush Syringe 10 Ml IV PRN PRN LINE FLUSH Timolol Maleate 1 drops 08/02/19 22:00 08/04/19 21:20 Timoptic OD 1 drops BID CLAUDIA Administration Nutrition/Malnutrition Assess - Dietary Evaluation Nutrition/Malnutrition Findings: Nutrition Notes Start: 08/03/19 09:40 Freq: Status: Active Protocol: Document 08/03/19 09:40 KS (Rec: 08/03/19 10:23 KS [id number]) Co-Sign 08/03/19 09:40 LM Nutrition Notes Need for Assessment generated from: geologist Initial or Follow up Assessment Current Diagnosis Acute Kidney Injury,Diabetes, Hypertension,Hyperlipidemia Other Pertinent Diagnosis Dementia, GI bleed, Anemia, UTI, encephalopathy Current Diet NPO Labs/Tests BUN 33 CR 1.4 Ca 8.3 Pertinent Medications Reviewed Height 5 ft 4 in Weight 60.3 kg Usual Body Weight 60 kg [place] Body Weight (kg) 54.54 BMI 22.8 Intake Prior to Admission Excellent Weight Status Appropriate Subjective/Other Information RN screen for skin risk. Kyle score 18. Daughter at bedside. Per daughter, pt had good appetite and was eating meals 2-3x daily with a snack [employer]. Reports no wt change and a UBW of 131lbs. Reports no chewing or swallowing difficulty. Pt reports feeling hungry at time of visit. Follow for diet advancement. Burn Absent Trauma Absent Minimum of two criteria No #1 Nutrition Diagnosis Inadequate oral intake Etiology GI bleed As Evidenced by Signs and Symptoms Pt is NPO Is patient on ventilator? No Is Patient Ambulatory and/or Out of Bed Yes REE-([place]-ambulatory/OOB) [ 1336.400 [id number]] Kcal/Kg value to use for calculation 27 Approximate Energy Requirements Using 1628 kcal/Kg Calculation Used for Recommendations Kcal/kg Additional Notes PRO: 48-72g/day (0.8-1.2g/kg/ day) Fluid: 1mL/kcal Nutrition Intervention Change Diet Order: Advance diet when medically feasible Goal #1 Advance diet when medically feasible Anticipated Discharge Needs: Unable to determine at this time Follow-Up By: 08/06/19 Additional Comments Follow for diet advancement
[2019-08-05] MEDS: LISINOPRIL 40 MG TAB PO SCH (09:34)
[2019-08-05] MEDS: PHOS-NAK POWDER PACKET PO SCH ×2 (09:34→22:11)
[2019-08-05] MEDS: TIMOLOL 0.5% OPHTH SOLN 5 ML OD SCH ×2 (09:35→22:11)
[2019-08-05] MEDS: cefTRIAXone/NS 1 GM/50 ML 1 GM/50 ML BAG IV SCH (10:20)
--- NOTE | 2019-08-05 10:43 | Progress Note ---
Assessment and Plan 1. Acute kidney injury: Vasomotor AZALIA in the setting of volume depletion. Renal US was negative for obstructive uropathy. Continue IV fluids. Renal function is better. Monitor renal function. Avoid nephrotoxic agents. Meds dosage based on GFR. 2. FEN: Hypernatremia, improved. Replete Phos. Monitor lytes. 3. GI bleed: Followed by GI. S/p EGD. 4. Acute Anemia 2/2 GI bleed: S/p PRBC. 5. UTI. 6. Dementia. 7. DM. D/w her daughter and answered all questions. Examination: General appearance: well-developed, well-nourished, appears stated age, no d istress HEENT: ATNC, TANYA, mucous membranes moist, vision intact Neck: supple, trachea midline Respiratory: Clear to Ascultation Heart: regular, S1S2, no murmur Gastrointestinal: normoactive bowel sounds, not tender, not distended Integumentary: no rash, warm and dry Neurologic: no focal deficit, no asterixis, confused Musculoskeletal: no edema Psychiatric: cooperative Subjective Date of service: 08/05/19 Interval history: Patient was seen and examined at the bedside. Doing ok. Objective - Vital Signs Vital signs: Vital Signs - 12hr 08/05/19 08/05/19 08/05/19 01:56 07:07 07:20 Temperature 98.9 F 98.9 F Pulse Rate 56 L 62 Respiratory 18 18 Rate Blood Pressure 159/55 160/53 O2 Sat by Pulse 92 96 96 Oximetry 08/05/19 08/05/19 07:49 09:34 Temperature Pulse Rate 62 Respiratory 18 Rate Blood Pressure 160/53 O2 Sat by Pulse Oximetry - Lab 08/05/19 05:26 08/05/19 05:26 Most recent lab results Calcium 8.1 mg/dL (8.4-10.2) L 08/05/19 05:26 Phosphorus 2.00 mg/dL (2.5-4.5) L 08/05/19 05:26 Magnesium 1.80 mg/dL (1.7-2.3) 08/05/19 05:26 Medications & Allergies - Medications Allergies/Adverse Reactions: Allergies No Known Allergies Allergy (Verified 09/12/15 06:15) Home Medications: Home Medications Medication Instructions Recorded Confirmed Last Taken Type Benazepril HCl [Lotensin] 40 mg PO DAILY 09/12/15 08/05/19 09/11/15 History Carvedilol [Coreg] 6.25 mg PO BID 09/12/15 08/05/19 09/11/15 History Digoxin [Digox] 250 mcg PO DAILY 09/12/15 08/05/19 09/11/15 History Furosemide [Lasix TAB] 20 mg PO QDAY PRN 09/12/15 08/05/19 09/11/15 History Megestrol Acetate [Megace] 40 mg PO DAILY 09/12/15 08/05/19 09/11/15 History Timolol 0.5% [Timoptic] 1 drops OP BID 09/12/15 08/05/19 09/11/15 History Complete Multi Tablet 1 tab PO DAILY 08/05/19 08/05/19 Unknown History Donepezil HCl 10 mg PO DAILY 08/05/19 08/05/19 Unknown History Latanoprost 0.005% 0.005 each OU DAILY 08/05/19 08/05/19 Unknown History Lisinopril 20 mg PO DAILY 08/05/19 08/05/19 Unknown History Pravastatin Sodium 20 mg PO HS 08/05/19 08/05/19 Unknown History Senna Plus 8.6-50 mg Tablet 8.6 - 50 mg PO PRN 08/05/19 08/05/19 Unknown History Torsemide [Demadex] 20 mg PO DAILY 08/05/19 08/05/19 Unknown History traMADol 50 mg PO PRN PRN 08/05/19 08/05/19 Unknown History Active Medications: Generic Name Dose Route Start Last Admin Trade Name Freq PRN Reason Stop Dose Admin Albuterol 2.5 mg 08/02/19 17:00 Proventil IH Q3HRT PRN Shortness Of Breath Dextrose 25 ml 08/03/19 15:43 08/04/19 06:13 D50w (25gm) Syringe IV 25 ml PRN PRN Administration Hypoglycemia Digoxin 0.25 mg 08/03/19 17:00 08/04/19 17:48 Lanoxin PO 0.25 mg DAILY@1700 CLAUDIA Administration Hydralazine HCl 10 mg 08/04/19 10:00 Apresoline IV Q4HR PRN Hypertension Pantoprazole Sodium 80 mg/ 100 mls @ 10 mls/hr 10/03/19 15:00 08/05/19 02:17 Sodium Chloride IV 8 mg/hr DIRECT CLAUDIA 10 mls/hr Administration 8 MG/HR Ceftriaxone Sodium 1 gm in 50 mls @ 100 mls/hr 08/02/19 15:00 08/05/19 10:20 Rocephin/Ns 1 Gm/50 Ml IV 100 mls/hr Q24HR CLAUDIA Administration Protocol Dextrose 1,000 mls @ 100 mls/hr 08/04/19 08:00 08/05/19 05:15 D5w IV 100 mls/hr DIRECT CLAUDIA Administration Sodium Chloride 1,000 mls @ 50 mls/hr 08/04/19 12:00 Nacl 0.9% 1000 Ml IV DIRECT CLAUDIA Lisinopril 40 mg 08/03/19 10:00 08/05/19 09:34 Zestril PO 40 mg QDAY CLAUDIA Administration Potassium Phos/Sodium Phos 1 each 08/05/19 10:00 08/05/19 09:34 Phos-Nak PO 1 each Q12HR CLAUDIA Administration Sodium Chloride 10 ml 08/02/19 22:00 08/05/19 09:36 Sodium Chloride Flush Syringe 10 Ml IV 10 ml BID CLAUDIA Administration Sodium Chloride 10 ml 08/02/19 15:00 Sodium Chloride Flush Syringe 10 Ml IV PRN PRN LINE FLUSH Timolol Maleate 1 drops 08/02/19 22:00 08/05/19 09:35 Timoptic OD 1 drops BID CLAUDIA Administration
--- NOTE | 2019-08-05 10:45 | Progress Note ---
Assessment and Plan Full consult dictated 88 y/o female. significant lower GI bleed. suspicious sessile cecal mass noted on colonoscopy (biopsied) but also large polyp removed in rectosigmoid area Abd soft. non tender at present. imp as above. pt will need R hemicolectomy but need to await path report on large rectosigmoid polyp. also pt needs CT abd & pelvis with po & IV contrast as well as CEA to r/o any metastatic disease awaiting path & CT reports will follow with you. (already discussed plans with family and stressed that pt is a high surgical risk) Chief complaint: she is bleeding History of present illness: 88 YO Female with HTN, HLD, Dementia presents to ED for evaluation. Pt is confused and unable to provide detailed history. Pt history provided by daughter who is at bedside during exam and interview. As per daughter, the patient has experienced 4-5 dark tarry stools daily over the past 1 week with persistent symptoms over the same time frame. Pt transported to [facility] via private vehicle for evaluation. Pt seen and evaluated in ED and found to have GI Bleed complicated by symptomatic anemia with HGB of 4.8, as well as Acute Kidney Injury, UTI and Encephalopathy. Pt admitted to IMCU and initiated on PRBC transfusion. GI consulted in ED. Nephrology consulted in ED. No reports of fever, chills, CP, Palpitations, NVD, Productive cough, ingestion of food/water from new or different sources. Prior admission on 09/12/15 reviewed. All listed medication reconciled at time of admission. Advanced car planning conducted in ED. Pt daughter acknowledges understanding and agreement with care plan. Past History Past Medical History: diabetes, hypertension, hyperlipidemia, other (Dementia) Past Surgical History: No surgical history Social history: lives with family. denies: smoking, alcohol abuse Family history: diabetes, hypertension Objective Vital Signs - 12hr 08/05/19 08/05/19 08/05/19 01:56 07:07 07:20 Temperature 98.9 F 98.9 F Pulse Rate 56 L 62 Respiratory 18 18 Rate Blood Pressure 159/55 160/53 O2 Sat by Pulse 92 96 96 Oximetry 08/05/19 08/05/19 07:49 09:34 Temperature Pulse Rate 62 Respiratory 18 Rate Blood Pressure 160/53 O2 Sat by Pulse Oximetry - Labs 08/05/19 05:26 08/05/19 05:26 Diabetes panel 08/05/19 Range/Units 05:26 Sodium 140 D (137-145) mmol/L Potassium 4.0 D (3.6-5.0) mmol/L Chloride 106.2 (98-107) mmol/L Carbon Dioxide 22 (22-30) mmol/L BUN 8 (7-17) mg/dL Creatinine 1.1 (0.7-1.2) mg/dL Glucose 133 H (65-100) mg/dL Calcium 8.1 L (8.4-10.2) mg/dL Calcium panel 08/05/19 Range/Units 05:26 Calcium 8.1 L (8.4-10.2) mg/dL Phosphorus 2.00 L (2.5-4.5) mg/dL Pituitary panel 08/05/19 Range/Units 05:26 Sodium 140 D (137-145) mmol/L Potassium 4.0 D (3.6-5.0) mmol/L Chloride 106.2 (98-107) mmol/L Carbon Dioxide 22 (22-30) mmol/L BUN 8 (7-17) mg/dL Creatinine 1.1 (0.7-1.2) mg/dL Glucose 133 H (65-100) mg/dL Calcium 8.1 L (8.4-10.2) mg/dL Adrenal panel 08/05/19 Range/Units 05:26 Sodium 140 D (137-145) mmol/L Potassium 4.0 D (3.6-5.0) mmol/L Chloride 106.2 (98-107) mmol/L Carbon Dioxide 22 (22-30) mmol/L BUN 8 (7-17) mg/dL Creatinine 1.1 (0.7-1.2) mg/dL Glucose 133 H (65-100) mg/dL Calcium 8.1 L (8.4-10.2) mg/dL
--- NOTE | 2019-08-05 10:55 | Gastroenterology Progress Note ---
Assessment and Plan GI bleed: probable diverticular disease - no further signs bleeding - h/h stable - follow Coon polyps; s/p polypectomy w/ 2 w/ larger in caecum not removed - surgery input noted - will f/u bx's results - no direct GI intervention at this time - continue current meds - call if needed Subjective Date of service: 08/05/19 Interval history: - no signs bleeding overnight Objective - Constitutional Vitals: Temp Pulse Resp BP Pulse Ox 98.9 F 62 18 160/53 96 08/05/19 07:07 08/05/19 09:34 08/05/19 07:49 08/05/19 09:34 08/05/19 07:20 General appearance: no acute distress - EENT Eyes: PERRL - Respiratory Respiratory: bilateral: CTA - Cardiovascular Rhythm: regular Heart Sounds: Present: S1 & S2 - Gastrointestinal General gastrointestinal: Present: soft, non-tender, non-distended - Labs CBC & Chem 7: 08/05/19 05:26 08/05/19 05:26 Labs: Laboratory Results - last 24 hr 08/04/19 08/04/19 08/04/19 12:48 15:16 18:21 WBC 10.8 RBC 3.09 L Hgb 8.8 L Hct 26.2 L MCV 85 MCH 28 MCHC 33 RDW 14.9 Plt Count 264 Lymph % (Auto) 11.7 L Sharp % (Auto) 7.4 H Eos % (Auto) 3.1 Baso % (Auto) 0.2 Lymph # 1.3 Sharp # 0.8 Eos # 0.3 Baso # 0.0 Seg Neutrophils % 77.6 H Seg Neutrophils # 8.4 H Sodium Potassium Chloride Carbon Dioxide Anion Gap BUN Creatinine Estimated GFR BUN/Creatinine Ratio Glucose POC Glucose 113 H 186 H Calcium Phosphorus Magnesium 08/05/19 08/05/19 08/05/19 00:11 05:26 05:26 WBC 10.3 RBC 2.90 L Hgb 8.4 L Hct 24.9 L MCV 86 MCH 29 MCHC 34 RDW 14.9 Plt Count 261 Lymph % (Auto) 11.8 L Sharp % (Auto) 6.5 Eos % (Auto) 4.8 H Baso % (Auto) 0.4 Lymph # 1.2 Sharp # 0.7 Eos # 0.5 H Baso # 0.0 Seg Neutrophils % 76.5 H Seg Neutrophils # 7.9 H Sodium 140 D Potassium 4.0 D Chloride 106.2 Carbon Dioxide 22 Anion Gap 16 BUN 8 Creatinine 1.1 Estimated GFR 57 BUN/Creatinine Ratio 7 Glucose 133 H POC Glucose 152 H Calcium 8.1 L Phosphorus 2.00 L Magnesium 1.80 08/05/19 06:35 WBC RBC Hgb Hct MCV MCH MCHC RDW Plt Count Lymph % (Auto) Sharp % (Auto) Eos % (Auto) Baso % (Auto) Lymph # Sharp # Eos # Baso # Seg Neutrophils % Seg Neutrophils # Sodium Potassium Chloride Carbon Dioxide Anion Gap BUN Creatinine Estimated GFR BUN/Creatinine Ratio Glucose POC Glucose 105 Calcium Phosphorus Magnesium
--- NOTE | 2019-08-05 12:31 | Consultation ---
REASON FOR CONSULTATION: Significant lower GI bleeding with a cecal mass noted on colonoscopy as well as a large pedunculated polyp in the rectosigmoid area. HISTORY OF PRESENT ILLNESS: The patient is a pleasant 88-year-old female who was brought to the hospital secondary to lower GI bleeding. Family states the patient has not had any previous episodes of lower GI bleeding that they were aware of. Also, the patient has been having regular bowel movements. Denies any abdominal pain. PAST MEDICAL HISTORY: Pertinent for hypertension, glaucoma, diabetes, and heart disease. PAST SURGICAL HISTORY: Status post cataract surgery. ALLERGIES: No known allergies. MEDICATIONS: On chart. FAMILY HISTORY: Diabetes. SOCIAL HISTORY: Denies any smoking or drinking. PHYSICAL EXAMINATION: GENERAL: At this time reveals the patient to be awake, alert, cooperative, in no acute distress. VITAL SIGNS: Show her to be afebrile with a temperature of 98.9, blood pressure is 160/53, pulse of 62, respirations of 18. ABDOMEN: Examination of the abdomen reveals to be soft and nontender at present. LABORATORY DATA: Lab work at present includes a CBC, which shows a white count of 10.3, H and H is 8.4 and 24.9. It is noted that on admission, the patient's H and H was 4.8 and 13.9 and she received multiple blood transfusions. Electrolytes are essentially within normal limits. I do not see any LFTs on the chart. I have discussed the case with the hospitalist as well as the neurodiagnostic tech. The patient was transfused on admission and subsequently underwent an EGD, which was essentially negative. However, colonoscopy revealed what appears to be a sessile and fairly large mass in the area of the cecum near the ileocecal valve. Also, a 15-18 mm sessile polyp was noted in the area of the rectosigmoid, which was removed. Hot biopsies were taken of the sessile mass in the cecum. Both path reports are pending. IMPRESSION: At this time is that of a pleasant 88-year-old female with recent lower gastrointestinal bleeding, most likely secondary to the cecal mass previously described. Also, a rectosigmoid polyp removed. RECOMMENDATIONS: At this time, we will need to await the pathology reports on the rectosigmoid mass prior to proceeding with a right hemicolectomy in case any further surgery is needed in the rectosigmoid area. Also, I would recommend a CT of the abdomen and pelvis with IV and p.o. contrast at this time to rule out any metastatic liver disease, etc. Also order a CEA, which I will do. Also, we will order a CMP to check the liver functions. So at present, we will need to await pathology report as well as CT scan findings. We will follow closely with you. Also, I have discussed the case in detail with the patient's family, whose daughter is present. I have stressed the high surgical risk and further plans pending findings of the CT and the pathology report. Thank you very much for consultation. JOB# [id number] ALEJANDRO/[email or web address]
--- NOTE | 2019-08-05 17:22 | Cat Scan Report ---
CT ABDOMEN AND PELVIS WITH CONTRAST INDICATION: colon mass r/o metastatic disease. TECHNIQUE: Axial CT images were obtained through the abdomen and pelvis after 60 cc Omnipaque [address] scans at this location are performed using CT dose reduction for ALARA by means of automated e xposure control. COMPARISON: None available. FINDINGS: Exam is limited by motion artifact LOWER CHEST: Tiny bilateral pleural effusions. Linear bibasilar atelectasis. LIVER: No significant abnormality. Simple 1.7 cm cyst left hepatic lobe image 48 GALLBLADDER: No significant abnormality. BILE DUCTS: No significant abnormality. PANCREAS: No significant abnormality. SPLEEN: 1.4 cm hypodense splenic lesion axial image 27 likely represents a pseudocyst. ADRENALS: 4 RIGHT KIDNEY and URETER: Simple 8 cm right lower pole renal cyst. Small simple 2 cm right upper pole renal cyst LEFT KIDNEY and URETER: No significant abnormality. STOMACH and SMALL BOWEL: No significant abnormality. COLON: Colonic diverticulosis without CT evidence for diverticulitis. Focal bowel wall thickening of mid sigmoid colon/apple core lesion on image 134 likely represents patient's primary colon neoplasm. APPENDIX: No significant abnormality. PERITONEUM: No free fluid. No free air. No fluid collection. LYMPH NODES: No significant adenopathy. AORTA and ARTERIES: No significant abnormality. IVC and VEINS: No significant abnormality. URINARY BLADDER: No significant abnormality. REPRODUCTIVE ORGANS: 3 small subcentimeter calcified uterine fibroids ADDITIONAL FINDINGS: Left gluteus medius intramuscular lipoma measures 9.5 cm in craniocaudal length. SKELETAL SYSTEM: No significant abnormality. IMPRESSION: 1. Small apical or mass mid sigmoid colon characteristic for patient's known colon cancer. 2. No definite CT evidence for intra-abdominal or pelvic metastatic disease. 3. Mild colonic diverticulosis. 4. 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 5. Several tiny calcified uterine leiomyomas. 6 tiny bilateral pleural effusions Signer Name: Malvin Ramos MD Signed: 08/05/2019 5:18 PM Workstation Name: [id number]
[2019-08-05] MEDS: DIGOXIN 0.25 MG TAB PO SCH (17:27)
[2019-08-06] MEDS: PANTOPRAZOLE 80 MG in SODIUM CHLORIDE 0.9% 100 ML IV SCH (01:50)
[2019-08-06] MEDS: DEXTROSE 5% IN WATER 1,000 ML IV SCH ×2 (03:33→14:42)
[2019-08-06 06:40] LABS: Basophils % (Auto) 0.4 % (0.0-1.8); Eosinophils # (Auto) 0.4 K/mm3 (0.0-0.4); Eosinophils % (Auto) 4.2 % (0.0-4.3); Hemoglobin 8.2 gm/dl (10.1-14.3); Lymphocytes # (Auto) 1.1 K/mm3 (1.2-5.4); Lymphocytes % (Auto) 11.8 % (13.4-35.0); Mean Corpuscular HGB Conc 34 % (30-34); Mean Corpuscular Volume 85 fl (79-97); Monocytes # (Auto) 0.7 K/mm3 (0.0-0.8); Monocytes % (Auto) 7.6 % (0.0-7.3); Platelet Count 264 K/mm3 (140-440); Red Blood Count 2.83 M/mm3 (3.65-5.03); Red Cell Distribution Width 14.8 % (13.2-15.2)
[2019-08-06 07:16] LABS: Alanine Aminotransferase 15 units/L (7-56); Albumin 2.7 g/dL (3.9-5); BUN/Creatinine Ratio 4; Blood Urea Nitrogen 4 mg/dL (7-17); Calcium 8.1 mg/dL (8.4-10.2); Hemolysis Index 5
--- NOTE | 2019-08-06 08:52 | Progress Note ---
Assessment and Plan Assessment and plan: --Large cecal polyp; concern for malignancy Surgery consult as recommended by GI CT abdomen and pelvis with contrast, CEA Discussed with Dr. Walker Pending Pathology report --Acute GI bleeding: s/p Colonoscopy;08/04/19 Findings reviewed COLON: multiple medium/large diverticuli sigmoid/ascending colon - no signs bleeding noted - 8 mm polyp ascending, 15-18 mm polyp recto-sigmoid (hot snare polypectomy both) - larger 2-2 1/2cm polyps caecum on underside IC valve, broad based, concern for possible malignancy, not removed (noted no david ink available for marking), cold bx's - internal hemorrhoids - negative other S/P EGD :08/03/19 FINDINGS: 1. Mild erythematous mucosa in the antrum. No signs of bleeding. 2. Normal duodenum exam to the second portion. 3. Regular z-line at 40 cm from the incisors. 4. Normal esophagus. RECOMMENDATIONS: 1. Resume clear liquid diet. 2. Will plan for colonoscopy tomorrow. 3. Golytely prep and NPO MN. 4. Updated the family and agreeable for colonoscopy. 5. Monitor H/H every 8 hrs. Continue IV PPI therapy Possible Colonoscopy tomorrow --Acute blood loss anemia: Hemoglobin 4.8 at the time of admission S/P 3 units PRBC transfusion Hb 8.1 Monitor H&H transfuse additional as needed ---- AZALIA (acute kidney injury)/vasomotor nephropathy Current Visit: Yes Status: Acute . IVF resuscitation therapy, renal ultrasound, monitor serum creatnine, Nephrology following --UTI (urinary tract infection) Current Visit: Yes Status: Acute IV antibiotic therapy, follow cultures -- Encephalopathy/metabolic encephalopathy Current Visit: Yes Status: Acute supportive care, Treat UTI, neuro checks, aspiration precautions, --HTN (hypertension) Current Visit: Yes Status: Acute Monitor BP q shift, supportive care -- HLD (hyperlipidemia) Current Visit: Yes Status: Acute low fat, low cholesterol diet, --Mild Malnutrition/hypoalbuminemia: Nutrition suppliments,supportive care --DVT prophylaxis Current Visit: Yes Status: Acute SCD to BLE while in bed, Prophylactic heparin. Critical care time 31 minutes History Interval history: Patient's seen and examined medical records reviewed no new episodes of bleeding Vital signs reviewed Hospitalist Physical - Constitutional Vitals: Temp Pulse Resp BP Pulse Ox 99.0 F 62 20 169/57 98 08/06/19 07:36 08/06/19 07:38 08/06/19 07:36 08/06/19 07:36 08/06/19 07:46 General appearance: Present: no acute distress, well-nourished, other (resting) - EENT Eyes: Present: PERRL, EOM intact - Neck Neck: Present: supple, normal ROM - Respiratory Respiratory effort: normal Respiratory: bilateral: diminished, negative: rales, rhonchi, wheezing - Cardiovascular Rhythm: regular Heart Sounds: Present: S1 & S2 - Extremities Extremities: no ischemia, No edema - Abdominal General gastrointestinal: soft, non-tender, non-distended, normal bowel sounds - Integumentary Integumentary: Present: clear, warm - Psychiatric Psychiatric: appropriate mood/affect, cooperative - Neurologic Neurologic: CNII-XII intact, moves all extremities Results - Labs CBC & Chem 7: 08/06/19 06:04 08/06/19 06:04 Labs: Laboratory Last Values WBC 9.3 K/mm3 (4.5-11.0) 08/06/19 06:04 RBC 2.83 M/mm3 (3.65-5.03) L 08/06/19 06:04 Hgb 8.2 gm/dl (10.1-14.3) L 08/06/19 06:04 Hct 24.0 % (30.3-42.9) L 08/06/19 06:04 MCV 85 fl (79-97) 08/06/19 06:04 MCH 29 pg (28-32) 08/06/19 06:04 MCHC 34 % (30-34) 08/06/19 06:04 RDW 14.8 % (13.2-15.2) 08/06/19 06:04 Plt Count 264 K/mm3 (140-440) 08/06/19 06:04 Lymph % (Auto) 11.8 % (13.4-35.0) L 08/06/19 06:04 [place] % (Auto) 7.6 % (0.0-7.3) H 08/06/19 06:04 Eos % (Auto) 4.2 % (0.0-4.3) 08/06/19 06:04 Baso % (Auto) 0.4 % (0.0-1.8) 08/06/19 06:04 Lymph # 1.1 K/mm3 (1.2-5.4) L 08/06/19 06:04 [place] # 0.7 K/mm3 (0.0-0.8) 08/06/19 06:04 Eos # 0.4 K/mm3 (0.0-0.4) 08/06/19 06:04 Baso # 0.0 K/mm3 (0.0-0.1) 08/06/19 06:04 Seg Neutrophils % 76.0 % (40.0-70.0) H 08/06/19 06:04 Seg Neutrophils # 7.1 K/mm3 (1.8-7.7) 08/06/19 06:04 PT 14.4 Sec. (12.2-14.9) 08/03/19 10:00 INR 1.15 (0.87-1.13) H 08/03/19 10:00 VBG pH 7.397 (7.320-7.420) 08/02/19 13:36 Sodium 140 mmol/L (137-145) 08/06/19 06:04 Potassium 4.0 mmol/L (3.6-5.0) 08/06/19 06:04 Chloride 107.7 mmol/L (98-107) H 08/06/19 06:04 Carbon Dioxide 22 mmol/L (22-30) 08/06/19 06:04 Anion Gap 14 mmol/L 08/06/19 06:04 BUN 4 mg/dL (7-17) L 08/06/19 06:04 Creatinine 1.0 mg/dL (0.7-1.2) 08/06/19 06:04 Estimated GFR > 60 ml/min 08/06/19 06:04 BUN/Creatinine Ratio 4 % 08/06/19 06:04 Glucose 126 mg/dL (65-100) H 08/06/19 06:04 POC Glucose 122 (70-105) H 08/06/19 06:29 Lactic Acid 1.40 mmol/L (0.7-2.0) 08/03/19 14:31 Calcium 8.1 mg/dL (8.4-10.2) L 08/06/19 06:04 Phosphorus 3.40 mg/dL (2.5-4.5) D 08/06/19 06:04 Magnesium 1.80 mg/dL (1.7-2.3) 08/05/19 05:26 Total Bilirubin 0.30 mg/dL (0.1-1.2) 08/06/19 06:04 AST 19 units/L (5-40) 08/06/19 06:04 ALT 15 units/L (7-56) 08/06/19 06:04 Alkaline Phosphatase 66 units/L (35-129) 08/06/19 06:04 Total Protein 5.6 g/dL (6.3-8.2) L 08/06/19 06:04 Albumin 2.7 g/dL (3.9-5) L 08/06/19 06:04 Albumin/Globulin Ratio 0.9 % 08/06/19 06:04 Lipase 16 units/L (13-60) 08/02/19 12:45 Urine Color Yellow (Yellow) 08/02/19 13:22 Urine Turbidity Cloudy (Clear) 08/02/19 13:22 Urine pH 5.0 (5.0-7.0) 08/02/19 13:22 Ur Specific [place] 1.012 (1.003-1.030) 08/02/19 13:22 Urine Protein <15 mg/dl mg/dL (Negative) 08/02/19 13:22 Urine Glucose (UA) Neg mg/dL (Negative) 08/02/19 13:22 Urine Ketones Neg mg/dL (Negative) 08/02/19 13:22 Urine Blood Neg (Negative) 08/02/19 13:22 Urine Nitrite Neg (Negative) 08/02/19 13:22 Urine Bilirubin Neg (Negative) 08/02/19 13:22 Urine Urobilinogen < 2.0 mg/dL (<2.0) 08/02/19 13:22 Ur Leukocyte Esterase Lg (Negative) 08/02/19 13:22 Urine WBC (Auto) 46.0 /HPF (0.0-6.0) H 08/02/19 13:22 Urine RBC (Auto) 2.0 /HPF (0.0-6.0) 08/02/19 13:22 U Epithel Cells (Auto) < 1.0 /HPF (0-13.0) 08/02/19 13:22 Urine Bacteria (Auto) 4+ /HPF (Negative) 08/02/19 13:22 Urine WBC Clumps 3+ /HPF 08/02/19 13:22 Hyaline Casts 10 /LPF 08/02/19 13:22 Urine Mucus Few /HPF 08/02/19 13:22 Digoxin 0.2 ng/mL (0.9-2.0) L 08/02/19 13:36 Blood Type O POSITIVE 08/02/19 13:36 Antibody Screen Negative 08/02/19 13:36 Crossmatch See Detail 08/02/19 13:36 Active Medications - Current Medications Current Medications: Generic Name Dose Route Start Last Admin Trade Name Freq PRN Reason Stop Dose Admin Albuterol 2.5 mg 08/02/19 17:00 Proventil IH Q3HRT PRN Shortness Of Breath Dextrose 25 ml 08/03/19 15:43 08/04/19 06:13 D50w (25gm) Syringe IV 25 ml PRN PRN Administration Hypoglycemia Digoxin 0.25 mg 08/03/19 17:00 08/05/19 17:27 Lanoxin PO 0.25 mg DAILY@1700 CLAUDIA Administration Hydralazine HCl 10 mg 08/04/19 10:00 Apresoline IV Q4HR PRN Hypertension Pantoprazole Sodium 80 mg/ 100 mls @ 10 mls/hr 08/02/19 15:00 08/06/19 01:50 Sodium Chloride IV 08/06/19 10:00 8 mg/hr DIRECT CLAUDIA 10 mls/hr Administration 8 MG/HR Ceftriaxone Sodium 1 gm in 50 mls @ 100 mls/hr 08/02/19 15:00 08/05/19 10:20 Rocephin/Ns 1 Gm/50 Ml IV 100 mls/hr Q24HR CLAUDIA Administration Protocol Dextrose 1,000 mls @ 100 mls/hr 08/04/19 08:00 08/06/19 03:33 D5w IV 100 mls/hr DIRECT CLAUDIA Administration Lisinopril 40 mg 08/03/19 10:00 08/05/19 09:34 Zestril PO 40 mg QDAY CLAUDIA Administration Pantoprazole Sodium 40 mg 08/06/19 12:00 Protonix IV 08/06/19 22:01 BID CLAUDIA Pantoprazole Sodium 40 mg 08/07/19 10:00 Protonix PO BID CLAUDIA Potassium Phos/Sodium Phos 1 each 08/05/19 10:00 08/05/19 22:11 Phos-Nak PO 1 each Q12HR CLAUDIA Administration Sodium Chloride 10 ml 08/02/19 22:00 08/05/19 22:11 Sodium Chloride Flush Syringe 10 Ml IV 10 ml BID CLAUDIA Administration Sodium Chloride 10 ml 08/02/19 15:00 Sodium Chloride Flush Syringe 10 Ml IV PRN PRN LINE FLUSH Timolol Maleate 1 drops 08/02/19 22:00 08/05/19 22:11 Timoptic OD 1 drops BID CLAUDIA Administration Nutrition/Malnutrition Assess - Dietary Evaluation Nutrition/Malnutrition Findings: Nutrition Notes Start: 08/03/19 09:40 Freq: Status: Active Protocol: Document 08/03/19 09:40 KS (Rec: 08/03/19 10:23 KS [id number]) Co-Sign 08/03/19 09:40 LM Nutrition Notes Need for Assessment generated from: box repairer Initial or Follow up Assessment Current Diagnosis Acute Kidney Injury,Diabetes, Hypertension,Hyperlipidemia Other Pertinent Diagnosis Dementia, GI bleed, Anemia, UTI, encephalopathy Current Diet NPO Labs/Tests BUN 33 CR 1.4 Ca 8.3 Pertinent Medications Reviewed Height 5 ft 4 in Weight 60.3 kg Usual Body Weight 60 kg [place] Body Weight (kg) 54.54 BMI 22.8 Intake Prior to Admission Excellent Weight Status Appropriate Subjective/Other Information RN screen for skin risk. Kyle score 18. Daughter at bedside. 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 Reports no wt change and a UBW of 131lbs. Reports no chewing or swallowing difficulty. Pt reports feeling hungry at time of visit. Follow for diet advancement. Burn Absent Trauma Absent Minimum of two criteria No #1 Nutrition Diagnosis Inadequate oral intake Etiology GI bleed As Evidenced by Signs and Symptoms Pt is NPO Is patient on ventilator? No Is Patient Ambulatory and/or Out of Bed Yes REE-([place]-St. Jeor-ambulatory/OOB) [ 1336.400 NUTR.[id number]] Kcal/Kg value to use for calculation 27 Approximate Energy Requirements Using 1628 kcal/Kg Calculation Used for Recommendations Kcal/kg Additional Notes PRO: 48-72g/day (0.8-1.2g/kg/ day) Fluid: 1mL/kcal Nutrition Intervention Change Diet Order: Advance diet when medically feasible Goal #1 Advance diet when medically feasible Anticipated Discharge Needs: Unable to determine at this time Follow-Up By: 08/06/19 Additional Comments Follow for diet advancement
[2019-08-06] MEDS: LISINOPRIL 40 MG TAB PO SCH (10:07)
[2019-08-06] MEDS: cefTRIAXone/NS 1 GM/50 ML 1 GM/50 ML BAG IV SCH (10:07)
[2019-08-06] MEDS: PHOS-NAK POWDER PACKET PO SCH ×2 (10:08→21:22)
[2019-08-06] MEDS: TIMOLOL 0.5% OPHTH SOLN 5 ML OD SCH ×2 (10:08→21:22)
--- NOTE | 2019-08-06 10:15 | Progress Note ---
Assessment and Plan 1. Acute kidney injury: Vasomotor AZALIA in the setting of volume depletion. Renal US was negative for obstructive uropathy. Renal function is better. Monitor renal function. Avoid nephrotoxic agents. Meds dosage based on GFR. 2. FEN: Hypernatremia, improved. Monitor lytes. 3. GI bleed: S/p EGD. 4. Acute Anemia 2/2 GI bleed: S/p PRBC. 5. UTI. 6. Dementia. 7. DM. D/w her daughter and answered all questions. Examination: General appearance: well-developed, well-nourished, appears stated age, no distress HEENT: ATNC, TANYA, mucous membranes moist, vision intact Neck: supple, trachea midline Respiratory: Clear to Ascultation Heart: regular, S1S2, no murmur Gastrointestinal: normoactive bowel sounds, not tender, not distended Integumentary: no rash, warm and dry Neurologic: no focal deficit, no asterixis, confused Musculoskeletal: no edema Psychiatric: cooperative Subjective Date of service: 08/06/19 Interval history: Patient was seen and examined at the bedside. Doing ok. Daughter at the bedside. Objective - Vital Signs Vital signs: Vital Signs - 12hr 08/06/19 08/06/19 08/06/19 01:57 07:36 07:38 Temperature 99.3 F 99.0 F Pulse Rate 59 L 63 Pulse Rate [ 62 From Monitor] Respiratory 18 20 Rate Blood Pressure 148/49 169/57 O2 Sat by Pulse 98 97 98 Oximetry 08/06/19 07:46 Temperature Pulse Rate Pulse Rate [ From Monitor] Respiratory Rate Blood Pressure O2 Sat by Pulse 98 Oximetry - Lab 08/06/19 06:04 08/06/19 06:04 Most recent lab results Calcium 8.1 mg/dL (8.4-10.2) L 08/06/19 06:04 Phosphorus 3.40 mg/dL (2.5-4.5) D 08/06/19 06:04 Magnesium 1.80 mg/dL (1.7-2.3) 08/05/19 05:26 Medications & Allergies - Medications Allergies/Adverse Reactions: Allergies No Known Allergies Allergy (Verified 09/12/15 06:15) Home Medications: Home Medications Medication Instructions Recorded Confirmed Last Taken Type Benazepril HCl [Lotensin] 40 mg PO DAILY 09/12/15 08/05/19 09/11/15 History Carvedilol [Coreg] 6.25 mg PO BID 09/12/15 08/05/19 09/11/15 History Digoxin [Digox] 250 mcg PO DAILY 09/12/15 08/05/19 09/11/15 History Furosemide [Lasix TAB] 20 mg PO QDAY PRN 09/12/15 08/05/19 09/11/15 History Megestrol Acetate [Megace] 40 mg PO DAILY 09/12/15 08/05/19 09/11/15 History Timolol 0.5% [Timoptic] 1 drops OP BID 09/12/15 08/05/19 09/11/15 History Complete Multi Tablet 1 tab PO DAILY 08/05/19 08/05/19 Unknown History Donepezil HCl 10 mg PO DAILY 08/05/19 08/05/19 Unknown History Latanoprost 0.005% 0.005 each OU DAILY 08/05/19 08/05/19 Unknown History Lisinopril 20 mg PO DAILY 08/05/19 08/05/19 Unknown History Pravastatin Sodium 20 mg PO HS 08/05/19 08/05/19 Unknown History Senna Plus 8.6-50 mg Tablet 8.6 - 50 mg PO PRN 08/05/19 08/05/19 Unknown History Torsemide [Demadex] 20 mg PO DAILY 08/05/19 08/05/19 Unknown History traMADol 50 mg PO PRN PRN 08/05/19 08/05/19 Unknown History Active Medications: Generic Name Dose Route Start Last Admin Trade Name Dreq PRN Reason Stop Dose Admin Albuterol 2.5 mg 08/02/19 17:00 Proventil IH Q3HRT PRN Shortness Of Breath Dextrose 25 ml 08/03/19 15:43 08/04/19 06:13 D50w (25gm) Syringe IV 25 ml PRN PRN Administration Hypoglycemia Digoxin 0.25 mg 08/03/19 17:00 08/05/19 17:27 Lanoxin PO 0.25 mg DAILY@1700 CLAUDIA Administration Hydralazine HCl 10 mg 08/04/19 10:00 Apresoline IV Q4HR PRN Hypertension Ceftriaxone Sodium 1 gm in 50 mls @ 100 mls/hr 08/02/19 15:00 08/06/19 10:07 Rocephin/Ns 1 Gm/50 Ml IV 100 mls/hr Q24HR CLAUDIA Administration Protocol Dextrose 1,000 mls @ 100 mls/hr 08/04/19 08:00 08/06/19 03:33 D5w IV 100 mls/hr DIRECT CLAUDIA Administration Lisinopril 40 mg 08/03/19 10:00 08/06/19 10:07 Zestril PO 40 mg QDAY CLAUDIA Administration Pantoprazole Sodium 40 mg 08/06/19 12:00 Protonix IV 08/06/19 22:01 BID CLAUDIA Pantoprazole Sodium 40 mg 08/07/19 10:00 Protonix PO BID CLAUDIA Potassium Phos/Sodium Phos 1 each 08/05/19 10:00 08/06/19 10:08 Phos-Nak PO 1 each Q12HR CLAUDIA Administration Sodium Chloride 10 ml 08/02/19 22:00 08/06/19 10:08 Sodium Chloride Flush Syringe 10 Ml IV 10 ml BID CLAUDIA Administration Sodium Chloride 10 ml 08/02/19 15:00 Sodium Chloride Flush Syringe 10 Ml IV PRN PRN LINE FLUSH Timolol Maleate 1 drops 08/02/19 22:00 08/06/19 10:08 Timoptic OD 1 drops BID CLAUDIA Administration
--- NOTE | 2019-08-06 10:20 | Progress Note ---
Assessment and Plan Pt feeling well without compl. Abd soft. reviewed CT with radiologist. COLON: Colonic diverticulosis without CT evidence for diverticulitis. Focal bowel wall thickening of mid sigmoid colon/apple core lesion on image 134 likely represents patient's primary colon neoplasm. APPENDIX: No significant abnormality. IMPRESSION: 1. Small apical or mass mid sigmoid colon characteristic for patient's known colon cancer. 2. No definite CT evidence for intra-abdominal or pelvic metastatic disease. 3. Mild colonic diverticulosis. 4. 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 5. Several tiny calcified uterine lei omyomas. 6 tiny bilateral pleural effusions So still some mucosal thickening noted in area of sigmoid colon presumably at the area of biopsy site. Also lesion in cecum. Liver appears wnl. So p atient will most likely be requiring subtotal colectomy. awaiting path report. surgically stable cl liq diet monitor h/h will begin bowel prep when path confirmation available to proceed with expl lap and colectomy. T&M 2 units prbc pre-op Selected Entries 08/05/19 08/05/19 08/05/19 01:56 07:49 09:34 Temperature 98.9 F Pulse Rate 62 Respiratory 18 Rate O2 Sat by Pulse Oximetry Blood Pressure 160/53 08/06/19 08/06/19 07:36 07:38 Temperature 99.0 F Pulse Rate 63 Respiratory Rate O2 Sat by Pulse 98 Oximetry Blood Pressure 169/57 Laboratory Tests 08/05/19 08/05/19 08/06/19 05:26 05:26 06:04 WBC 10.3 9.3 Hgb 8.4 L 8.2 L Hct 24.9 L 24.0 L Sodium 140 D Potassium 4.0 D Chloride 106.2 Objective Vital Signs - 12hr 08/06/19 08/06/19 08/06/19 01:57 07:36 07:38 Temperature 99.3 F 99.0 F Pulse Rate 59 L 63 Pulse Rate [ 62 From Monitor] Respiratory 18 20 Rate Blood Pressure 148/49 169/57 O2 Sat by Pulse 98 97 98 Oximetry 08/06/19 07:46 Temperature Pulse Rate Pulse Rate [ From Monitor] Respiratory Rate Blood Pressure O2 Sat by Pulse 98 Oximetry - Labs 08/06/19 06:04 08/06/19 06:04 Diabetes panel 08/06/19 Range/Units 06:04 Sodium 140 (137-145) mmol/L Potassium 4.0 (3.6-5.0) mmol/L Chloride 107.7 H (98-107) mmol/L Carbon Dioxide 22 (22-30) mmol/L BUN 4 L (7-17) mg/dL Creatinine 1.0 (0.7-1.2) mg/dL Glucose 126 H (65-100) mg/dL Calcium 8.1 L (8.4-10.2) mg/dL AST 19 (5-40) units/L ALT 15 (7-56) units/L Alkaline Phosphatase 66 (35-129) units/L Total Protein 5.6 L (6.3-8.2) g/dL Albumin 2.7 L (3.9-5) g/dL Calcium panel 08/06/19 Range/Units 06:04 Calcium 8.1 L (8.4-10.2) mg/dL Phosphorus 3.40 D (2.5-4.5) mg/dL Albumin 2.7 L (3.9-5) g/dL Pituitary panel 08/06/19 Range/Units 06:04 Sodium 140 (137-145) mmol/L Potassium 4.0 (3.6-5.0) mmol/L Chloride 107.7 H (98-107) mmol/L Carbon Dioxide 22 (22-30) mmol/L BUN 4 L (7-17) mg/dL Creatinine 1.0 (0.7-1.2) mg/dL Glucose 126 H (65-100) mg/dL Calcium 8.1 L (8.4-10.2) mg/dL Adrenal panel 08/06/19 Range/Units 06:04 Sodium 140 (137-145) mmol/L Potassium 4.0 (3.6-5.0) mmol/L Chloride 107.7 H (98-107) mmol/L Carbon Dioxide 22 (22-30) mmol/L BUN 4 L (7-17) mg/dL Creatinine 1.0 (0.7-1.2) mg/dL Glucose 126 H (65-100) mg/dL Calcium 8.1 L (8.4-10.2) mg/dL Total Bilirubin 0.30 (0.1-1.2) mg/dL AST 19 (5-40) units/L ALT 15 (7-56) units/L Alkaline Phosphatase 66 (35-129) units/L Total Protein 5.6 L (6.3-8.2) g/dL Albumin 2.7 L (3.9-5) g/dL
[2019-08-06] MEDS: PANTOPRAZOLE 40 MG INJ IV SCH ×2 (12:57→21:22)
[2019-08-06] MEDS: guaiFENesin 100 MG/5 ML ORAL LIQD PO PRN ×2 (12:57→21:43)
[2019-08-06] MEDS: DIGOXIN 0.25 MG TAB PO SCH (16:57)
[2019-08-07] MEDS: LISINOPRIL 40 MG TAB PO SCH (09:25)
[2019-08-07] MEDS: PHOS-NAK POWDER PACKET PO SCH (09:26)
[2019-08-07] MEDS: TIMOLOL 0.5% OPHTH SOLN 5 ML OD SCH (09:26)
--- NOTE | 2019-08-07 09:48 | Progress Note ---
Assessment and Plan Assessment and plan: --Large cecal polyp; concern for malignancy Surgery consult as recommended by GI CT abdomen and pelvis with contrast, CEA Discussed with Dr. Walker Pending Pathology report --Acute GI bleeding: s/p Colonoscopy;08/04/19 Findings reviewed COLON: multiple medium/large diverticuli sigmoid/ascending colon - no signs bleeding noted - 8 mm polyp ascending, 15-18 mm polyp recto-sigmoid (hot snare polypectomy both) - larger 2-2 1/2cm polyps caecum on underside IC valve, broad based, concern for possible malignancy, not removed (noted no david ink available for marking), cold bx's - internal hemorrhoids - negative other S/P EGD :08/03/19 FINDINGS: 1. Mild erythematous mucosa in the antrum. No signs of bleeding. 2. Normal duodenum exam to the second portion. 3. Regular z-line at 40 cm from the incisors. 4. Normal esophagus. RECOMMENDATIONS: 1. Resume clear liquid diet. 2. Will plan for colonoscopy tomorrow. 3. Golytely prep and NPO MN. 4. Updated the family and agreeable for colonoscopy. 5. Monitor H/H every 8 hrs. Continue IV PPI therapy Possible Colonoscopy tomorrow --Acute blood loss anemia: Hemoglobin 4.8 at the time of admission S/P 3 units PRBC transfusion Hb 8.1 Monitor H&H transfuse additional as needed ---- AZALIA (acute kidney injury)/vasomotor nephropathy Current Visit: Yes Status: Acute . IVF resuscitation therapy, renal ultrasound, monitor serum creatnine, Nephrology following --UTI (urinary tract infection) Current Visit: Yes Status: Acute IV antibiotic therapy, follow cultures -- Encephalopathy/metabolic encephalopathy Current Visit: Yes Status: Acute supportive care, Treat UTI, neuro checks, aspiration precautions, --HTN (hypertension) Current Visit: Yes Status: Acute Monitor BP q shift, supportive care -- HLD (hyperlipidemia) Current Visit: Yes Status: Acute low fat, low cholesterol diet, --Mild Malnutrition/hypoalbuminemia: Nutrition suppliments,supportive care --DVT prophylaxis Current Visit: Yes Status: Acute SCD to BLE while in bed, Prophylactic heparin. Critical care time 31 minutes Hospitalist Physical - Constitutional Vitals: Temp Pulse Resp BP Pulse Ox 99.3 F 62 18 152/50 98 08/07/19 08:05 08/07/19 08:05 08/07/19 08:05 08/07/19 08:05 08/07/19 08:13 General appearance: Present: no acute distress, well-nourished, other (resting) Results - Labs CBC & Chem 7: 08/06/19 06:04 08/06/19 06:04 Labs: Laboratory Last Values WBC 9.3 K/mm3 (4.5-11.0) 08/06/19 06:04 RBC 2.83 M/mm3 (3.65-5.03) L 08/06/19 06:04 Hgb 8.2 gm/dl (10.1-14.3) L 08/06/19 06:04 Hct 24.0 % (30.3-42.9) L 08/06/19 06:04 MCV 85 fl (79-97) 08/06/19 06:04 MCH 29 pg (28-32) 08/06/19 06:04 MCHC 34 % (30-34) 08/06/19 06:04 RDW 14.8 % (13.2-15.2) 08/06/19 06:04 Plt Count 264 K/mm3 (140-440) 08/06/19 06:04 Lymph % (Auto) 11.8 % (13.4-35.0) L 08/06/19 06:04 [place] % (Auto) 7.6 % (0.0-7.3) H 08/06/19 06:04 Eos % (Auto) 4.2 % (0.0-4.3) 08/06/19 06:04 Baso % (Auto) 0.4 % (0.0-1.8) 08/06/19 06:04 Lymph # 1.1 K/mm3 (1.2-5.4) L 08/06/19 06:04 [place] # 0.7 K/mm3 (0.0-0.8) 08/06/19 06:04 Eos # 0.4 K/mm3 (0.0-0.4) 08/06/19 06:04 Baso # 0.0 K/mm3 (0.0-0.1) 08/06/19 06:04 Seg Neutrophils % 76.0 % (40.0-70.0) H 08/06/19 06:04 Seg Neutrophils # 7.1 K/mm3 (1.8-7.7) 08/06/19 06:04 PT 14.4 Sec. (12.2-14.9) 08/03/19 10:00 INR 1.15 (0.87-1.13) H 08/03/19 10:00 VBG pH 7.397 (7.320-7.420) 08/02/19 13:36 Sodium 140 mmol/L (137-145) 08/06/19 06:04 Potassium 4.0 mmol/L (3.6-5.0) 08/06/19 06:04 Chloride 107.7 mmol/L (98-107) H 08/06/19 06:04 Carbon Dioxide 22 mmol/L (22-30) 08/06/19 06:04 Anion Gap 14 mmol/L 08/06/19 06:04 BUN 4 mg/dL (7-17) L 08/06/19 06:04 Creatinine 1.0 mg/dL (0.7-1.2) 08/06/19 06:04 Estimated GFR > 60 ml/min 08/06/19 06:04 BUN/Creatinine Ratio 4 % 08/06/19 06:04 Glucose 126 mg/dL (65-100) H 08/06/19 06:04 POC Glucose 111 (70-105) H 08/07/19 05:49 Lactic Acid 1.40 mmol/L (0.7-2.0) 08/03/19 14:31 Calcium 8.1 mg/dL (8.4-10.2) L 08/06/19 06:04 Phosphorus 3.40 mg/dL (2.5-4.5) D 08/06/19 06:04 Magnesium 1.80 mg/dL (1.7-2.3) 08/05/19 05:26 Total Bilirubin 0.30 mg/dL (0.1-1.2) 08/06/19 06:04 AST 19 units/L (5-40) 08/06/19 06:04 ALT 15 units/L (7-56) 08/06/19 06:04 Alkaline Phosphatase 66 units/L (35-129) 08/06/19 06:04 Total Protein 5.6 g/dL (6.3-8.2) L 08/06/19 06:04 Albumin 2.7 g/dL (3.9-5) L 08/06/19 06:04 Albumin/Globulin Ratio 0.9 % 08/06/19 06:04 Lipase 16 units/L (13-60) 08/02/19 12:45 Urine Color Yellow (Yellow) 08/02/19 13:22 Urine Turbidity Cloudy (Clear) 08/02/19 13:22 Urine pH 5.0 (5.0-7.0) 08/02/19 13:22 Ur Specific [place] 1.012 (1.003-1.030) 08/02/19 13:22 Urine Protein <15 mg/dl mg/dL (Negative) 08/02/19 13:22 Urine Glucose (UA) Neg mg/dL (Negative) 08/02/19 13:22 Urine Ketones Neg mg/dL (Negative) 08/02/19 13:22 Urine Blood Neg (Negative) 08/02/19 13:22 Urine Nitrite Neg (Negative) 08/02/19 13:22 Urine Bilirubin Neg (Negative) 08/02/19 13:22 Urine Urobilinogen < 2.0 mg/dL (<2.0) 08/02/19 13:22 Ur Leukocyte Esterase Lg (Negative) 08/02/19 13:22 Urine WBC (Auto) 46.0 /HPF (0.0-6.0) H 08/02/19 13:22 Urine RBC (Auto) 2.0 /HPF (0.0-6.0) 08/02/19 13:22 U Epithel Cells (Auto) < 1.0 /HPF (0-13.0) 08/02/19 13:22 Urine Bacteria (Auto) 4+ /HPF (Negative) 08/02/19 13:22 Urine WBC Clumps 3+ /HPF 08/02/19 13:22 Hyaline Casts 10 /LPF 08/02/19 13:22 Urine Mucus Few /HPF 08/02/19 13:22 Digoxin 0.2 ng/mL (0.9-2.0) L 08/02/19 13:36 Blood Type O POSITIVE 08/02/19 13:36 Antibody Screen Negative 08/02/19 13:36 Crossmatch See Detail 08/02/19 13:36 Active Medications - Current Medications Current Medications: Generic Name Dose Route Start Last Admin Trade Name Freq PRN Reason Stop Dose Admin Albuterol 2.5 mg 08/02/19 17:00 Proventil IH Q3HRT PRN Shortness Of Breath Dextrose 25 ml 08/03/19 15:43 08/04/19 06:13 D50w (25gm) Syringe IV 25 ml PRN PRN Administration Hypoglycemia Digoxin 0.25 mg 08/03/19 17:00 08/06/19 16:57 Lanoxin PO 0.25 mg DAILY@1700 CLAUDIA Administration Guaifenesin 200 mg 08/06/19 12:06 08/06/19 21:43 Robitussin PO 200 mg Q6H PRN Administration Cough Hydralazine HCl 10 mg 08/04/19 10:00 Apresoline IV Q4HR PRN Hypertension Ceftriaxone Sodium 1 gm in 50 mls @ 100 mls/hr 08/02/19 15:00 08/06/19 12:58 Rocephin/Ns 1 Gm/50 Ml IV Infused Q24HR CLAUDIA Infusion Protocol Dextrose 1,000 mls @ 100 mls/hr 08/04/19 08:00 08/06/19 14:42 D5w IV 100 mls/hr DIRECT CLAUDIA Administration Lisinopril 40 mg 08/03/19 10:00 08/07/19 09:25 Zestril PO 40 mg QDAY CLAUDIA Administration Pantoprazole Sodium 40 mg 08/07/19 10:00 08/07/19 09:25 Protonix PO 40 mg BID CLAUDIA Administration Potassium Phos/Sodium Phos 1 each 08/05/19 10:00 08/07/19 09:26 Phos-Nak PO 1 each Q12HR CLAUDIA Administration Sodium Chloride 10 ml 08/02/19 22:00 08/07/19 09:26 Sodium Chloride Flush Syringe 10 Ml IV 10 ml BID CLAUDIA Administration Sodium Chloride 10 ml 08/02/19 15:00 Sodium Chloride Flush Syringe 10 Ml IV PRN PRN LINE FLUSH Timolol Maleate 1 drops 08/02/19 22:00 08/07/19 09:26 Timoptic OD 1 drops BID CLAUDIA Administration Nutrition/Malnutrition Assess - Dietary Evaluation Nutrition/Malnutrition Findings: Nutrition Notes Start: 08/03/19 09:40 Freq: Status: Active Protocol: Document 08/06/19 13:51 OH (Rec: 08/06/19 13:59 OH [id number]) Nutrition Notes Initial or Follow up Reassessment Current Diagnosis Acute Kidney Injury,Diabetes, Hypertension,Hyperlipidemia Other Pertinent Diagnosis Dementia, GI bleed, Anemia, UTI, encephalopathy, colon CA Current Diet clear liquid Labs/Tests ALB 2.7 Pertinent Medications Reviewed Height 5 ft 4 in Weight 60.3 kg Blanch Body Weight (kg) 54.54 BMI 22.8 Subjective/Other Information Family member sitting at bedside w/pt. Pt. able to verbalize answers to questions . Pt. indicates she has no issues chewing/swallowing but does use dentures. Pt. reports no n/v. She has in the past drank Ensure and liked it. Per MD notes exploratory lap and colectomy to be performed within the next day or so. Percent of energy/protein needs met: 40/40% Burn Absent Trauma Absent GI Symptoms Diarrhea Current % PO Fair (50-74%) Is patient on ventilator? No Is Patient Ambulatory and/or Out of Bed Yes REE-([place]-St. Jeor-ambulatory/OOB) [ 1336.400 NUTR.MSJOOB] Kcal/Kg value to use for calculation 27 Approximate Energy Requirements Using 1628 kcal/Kg Calculation Used for Recommendations Kcal/kg Additional Notes PRO: 48-72g/day (0.8-1.2g/kg/ day) Fluid: 1mL/kcal Nutrition Intervention Change Diet Order: Advance diet when medically feasible Goal #1 Advance diet when medically feasible Anticipated Discharge Needs: Unable to determine at this time Follow-Up By: 08/08/19 Additional Comments Follow for diet advancement
[2019-08-07] MEDS ORDERED: PANTOPRAZOLE 40 MG TAB PO SCH (10:00)
--- NOTE | 2019-08-07 10:10 | Progress Note ---
Assessment and Plan Pt status quo. no specific compl. hollie cl liq diet Abd soft. discussed path with pathologist - final report pending It looks like pt will need complete resection of both biopsy sites. Discussed need for subtotal colectomy and ileostomy with pt and daughter. After discussion amongst themselves, pt is deciding not to proceed with surgery at this time. Hold off on surgical intervention as per pt request. rec: may thus advance diet as hollie monitor h/h Objective Vital Signs - 12hr 08/07/19 08/07/19 08/07/19 01:39 06:17 08:05 Temperature 99.2 F 99.3 F Pulse Rate 58 L 62 Respiratory 22 18 Rate Blood Pressure 151/48 152/50 O2 Sat by Pulse 97 97 97 Oximetry 08/07/19 08:13 Temperature Pulse Rate Respiratory Rate Blood Pressure O2 Sat by Pulse 98 Oximetry - Labs 08/06/19 06:04 08/06/19 06:04
[2019-08-07] MEDS: cefTRIAXone/NS 1 GM/50 ML 1 GM/50 ML BAG IV SCH (11:14)
[2019-08-07] MEDS: guaiFENesin 100 MG/5 ML ORAL LIQD PO PRN (11:16)
--- NOTE | 2019-08-07 14:09 | Discharge Summary ---
Providers - Providers Date of Admission: 08/02/19 14:23 Date of discharge: 08/07/19 Attending physician: BUD OLMOS 08/02/19 14:23 Consult to Physician [CONS] Urgent Comment: Consulting Provider: ALLA BURRELL Physician Instructions: Reason For Exam: GI bleeding 08/02/19 14:30 Consult to Physician [CONS] Routine Comment: Consulting Provider: JODEE GOMEZ Physician Instructions: Reason For Exam: azalia 08/05/19 07:45 Consult to Physician [CONS] Routine Comment: Consulting Provider: JOSÉ ANTONIO FONSECA Physician Instructions: Reason For Exam: Cecum,large polyp,concern for malignancy/colonosco 08/06/19 06:11 Physical Therapy Evaluation and Treat [CONS] Urgent Comment: Reason For Exam: Decreased functional mobility; Weakness Primary care physician: LOREE MENA Hospitalization Reason for admission: Dark tarry stool/Severe anemia Condition: Fair Procedures: EGD Colonoscopy CT abd and pelvis Hospital course: 88 YO Female with HTN, HLD, Dementia presents to ED with h/o 4-5 dark tarry stools daily over the past 1 week. Patient was admitted,received 3 units PRBC,evaluated by GI ,had EGD and colonoscopy,Multiple colonic and large cecal polyp,s/p biopsy,possible malignancy,evaluated by surgeon and recommended colectomy.However patient refused surgery at this point and want to think and decide at a later date. Patient was couselled the seriousness of her diagnosis and treatment plan and the need for davion Today patient is stable.Vital signs reviwed Physical exam unremarkable. Discharge Diagnosis: --Large cecal polyp; concern for malignancy Surgery consult as recommended by GI CT abdomen and pelvis with contrast, CEA Surgeon recommended colectomy However the patient and the family refused Did not want the surgery at this time --Acute GI bleeding: s/p Colonoscopy;08/04/19 Findings reviewed COLON: multiple medium/large diverticuli sigmoid/ascending colon - no signs bleeding noted - 8 mm polyp ascending, 15-18 mm polyp recto-sigmoid (hot snare polypectomy both) - larger 2-2 1/2cm polyps caecum on underside IC valve, broad based, concern for possible malignancy, not removed (noted no david ink available for marking), cold bx's - internal hemorrhoids - negative other S/P EGD :08/03/19 FINDINGS: 1. Mild erythematous mucosa in the antrum. No signs of bleeding. 2. Normal duodenum exam to the second portion. 3. Regular z-line at 40 cm from the incisors. 4. Normal esophagus. RECOMMENDATIONS: 1. Resume clear liquid diet. 2. Will plan for colonoscopy tomorrow. 3. Golytely prep and NPO MN. 4. Updated the family and agreeable for colonoscopy. 5. Monitor H/H every 8 hrs. Continue IV PPI therapy Possible Colonoscopy tomorrow --Acute blood loss anemia: Hemoglobin 4.8 at the time of admission S/P 3 units PRBC transfusion Hb 8.1 Monitor H&H transfuse additional as needed ---- AZALIA (acute kidney injury)/vasomotor nephropathy Current Visit: Yes Status: Acute . IVF resuscitation therapy, renal ultrasound, monitor serum creatnine, Nephrology following --UTI (urinary tract infection) Current Visit: Yes Status: Acute IV antibiotic therapy, follow cultures -- Encephalopathy/metabolic encephalopathy Current Visit: Yes Status: Acute supportive care, Treat UTI, neuro checks, aspiration precautions, --HTN (hypertension) Current Visit: Yes Status: Acute Monitor BP q shift, supportive care -- HLD (hyperlipidemia) Current Visit: Yes Status: Acute low fat, low cholesterol diet, --Mild Malnutrition/hypoalbuminemia: Nutrition suppliments,supportive care --DVT prophylaxis Current Visit: Yes Status: Acute SCD to BLE while in bed, Prophylactic heparin. Disposition: DC/[place]-06 HOME UNDER [facility] Time spent for discharge: 32 min Core Measure Documentation - Palliative Care Palliative Care/ Comfort Measures: Not Applicable - Core Measures Any of the following diagnoses?: none Exam - Constitutional Vitals: Temp Pulse Resp BP Pulse Ox 99.3 F 62 18 152/50 99 08/07/19 08:05 08/07/19 08:05 08/07/19 08:05 08/07/19 08:05 08/07/19 10:00 General appearance: Present: no acute distress, well-nourished - EENT Eyes: Present: PERRL, EOM intact - Neck Neck: Present: supple, normal ROM - Respiratory Respiratory effort: normal Respiratory: bilateral: diminished, negative: rales, rhonchi, wheezing - Extremities Extremities: no ischemia, pulses intact - Abdominal General gastrointestinal: Present: soft, non-tender, non-distended, normal bowel sounds - Integumentary Integumentary: Present: clear, warm - Musculoskeletal Musculoskeletal: strength equal bilaterally, generalized weakness - Psychiatric Psychiatric: appropriate mood/affect, cooperative - Neurologic Neurologic: moves all extremities Plan Activity: advance as tolerated, fall precautions Diet: other (Soft diet ,advance as tolerated) Special Instructions: physical therapy (Home physical therapy) Additional Instructions: .Fall precautions. Advised nutrition supplement Ensure Plus/boost 3-4 times a day. As tolerated. If you change your mind and decide to undergo surgery, see Follow up with: LOREE MENA MD [Primary Care Provider] - 3-5 Days JOSÉ ANTONIO FONSECA MD [Staff Physician] - 7 Days ALLA BURRELL MD [Staff Physician] - 7 Days JACQUELIN LANDAVERDE MD [Staff Physician] - 7 Days Prescriptions: Pantoprazole [Protonix TAB] 40 mg PO BID #60 tablet guaiFENesin [Robitussin] 200 mg PO Q6H PRN #20 oral.liqd PRN Reason: Cough
[2019-08-07 14:46] VITALS: BP 148/43
--- NOTE | 2019-08-07 21:50 | Progress Note ---
Assessment and Plan 1. Acute kidney injury: Vasomotor AZALIA in the setting of volume depletion. Renal US was negative for obstructive uropathy. Renal function is better. Monitor renal function. Avoid nephrotoxic agents. Meds dosage based on GFR. 2. FEN: Hypernatremia, improved. Monitor lytes. 3. GI bleed: S/p EGD. 4. Acute Anemia 2/2 GI bleed: S/p PRBC. 5. UTI. 6. Dementia. 7. DM. D/w her daughter and answered all questions. Examination: General appearance: well-developed, well-nourished, appears stated age, no distress HEENT: ATNC, TANYA, mucous membranes moist, vision intact Neck: supple, trachea midline Respiratory: Clear to Auscultation Heart: regular, S1S2, no murmur Gastrointestinal: normoactive bowel sounds, not tender, not distended Integumentary: no rash, warm and dry Neurologic: no focal deficit, no asterixis, confused Musculoskeletal: no edema Psychiatric: cooperative Subjective Date of service: 08/07/19 Interval history: Patient was seen and examined at the bedside. Doing ok. Daughter at the bedside. Objective - Vital Signs Vital signs: Vital Signs - 12hr 08/07/19 08/07/19 10:00 14:14 Temperature 99.1 F Pulse Rate 63 Respiratory 18 Rate Blood Pressure 148/43 O2 Sat by Pulse 99 98 Oximetry - Lab 08/06/19 06:04 08/06/19 06:04 Most recent lab results Calcium 8.1 mg/dL (8.4-10.2) L 08/06/19 06:04 Phosphorus 3.40 mg/dL (2.5-4.5) D 08/06/19 06:04 Magnesium 1.80 mg/dL (1.7-2.3) 08/05/19 05:26 Medications & Allergies - Medications Allergies/Adverse Reactions: Allergies No Known Allergies Allergy (Verified 09/12/15 06:15) Home Medications: Home Medications Medication Instructions Recorded Confirmed Last Taken Type Benazepril HCl [Lotensin] 40 mg PO DAILY 09/12/15 08/05/19 09/11/15 History Carvedilol [Coreg] 6.25 mg PO BID 09/12/15 08/05/19 09/11/15 History Digoxin [Digox] 250 mcg PO DAILY 09/12/15 08/05/19 09/11/15 History Furosemide [Lasix TAB] 20 mg PO QDAY PRN 09/12/15 08/05/19 09/11/15 History Megestrol Acetate [Megace] 40 mg PO DAILY 09/12/15 08/05/19 09/11/15 History Timolol 0.5% [Timoptic] 1 drops OP BID 09/12/15 08/05/19 09/11/15 History Complete Multi Tablet 1 tab PO DAILY 08/05/19 08/05/19 Unknown History Donepezil HCl 10 mg PO DAILY 08/05/19 08/05/19 Unknown History Latanoprost 0.005% 0.005 each OU DAILY 08/05/19 08/05/19 Unknown History Pravastatin Sodium 20 mg PO HS 08/05/19 08/05/19 Unknown History Senna Plus 8.6-50 mg Tablet 8.6 - 50 mg PO PRN 08/05/19 08/05/19 Unknown History traMADol 50 mg PO PRN PRN 08/05/19 08/05/19 Unknown History Pantoprazole [Protonix TAB] 40 mg PO BID #60 tablet 08/07/19 Unknown Rx guaiFENesin [Robitussin] 200 mg PO Q6H PRN #20 oral.liqd 08/07/19 Unknown Rx
== END 2019-08-07 15:51 | disposition home health service (06) | DRG 377 ==
LOC: ED 11:36 → IMCU 14:23 → 2B-ACE 08-04 20:16
PROVIDERS: ADMIT Internal Medicine; ATTEND Internal Medicine
PROC: 30233N1 Transfusion of Nonautologous Red Blood Cells into Peripheral Vein, Percutaneous Approach (ICD-10-PCS; 2019-08-02)
PROC: 0DJ08ZZ Inspection of Upper Intestinal Tract, Via Natural or Artificial Opening Endoscopic (ICD-10-PCS; principal; 2019-08-03)
PROC: 0DBK8ZZ Excision of Ascending Colon, Via Natural or Artificial Opening Endoscopic (ICD-10-PCS; 2019-08-04)
PROC: 0DBN8ZZ Excision of Sigmoid Colon, Via Natural or Artificial Opening Endoscopic (ICD-10-PCS; 2019-08-04)
PROC: 0DBH8ZX Excision of Cecum, Via Natural or Artificial Opening Endoscopic, Diagnostic (ICD-10-PCS; 2019-08-04)
DX: K57.31 Diverticulosis of large intestine without perforation or abscess with bleeding (principal); G93.41 Metabolic encephalopathy; N17.0 Acute kidney failure with tubular necrosis; N39.0 Urinary tract infection, site not specified; D62 Acute posthemorrhagic anemia; E44.1 Mild protein-calorie malnutrition; E87.0 Hyperosmolality and hypernatremia; E78.2 Mixed hyperlipidemia; E11.9 Type 2 diabetes mellitus without complications; F03.90 Unspecified dementia, unspecified severity, without behavioral disturbance, psychotic disturbance, mood disturbance, and anxiety; K63.5 Polyp of colon; K64.8 Other hemorrhoids; I10 Essential (primary) hypertension; E78.5 Hyperlipidemia, unspecified; Z82.49 Family history of ischemic heart disease and other diseases of the circulatory system; Z83.3 Family history of diabetes mellitus; Z68.22 Body mass index [BMI] 22.0-22.9, adult; Z79.84 Long term (current) use of oral hypoglycemic drugs
CPT/HCPCS: 36415; 74177; 76770; 80048; 80053; 80162; 81001; 82140; 82271; 82378; 82805; 82962; 83690; 83735; 84100; 85007; 85014; 85018; 85025; 85027; 85610; 86850; 86900; 86901; 86920; 87045; 87086; 88305; 94640; 94760; 96365; 96372; 96375; G0378; C9113; J0360; J0696; J1644; J2250; J2370; J2704; J3480; J7030; J7040; J7070; P9016; Q9967